=== PATIENT | male | born 1960 | race Caucasian/White ===

== ENCOUNTER 2018-12-05 01:13 | Emergency (ER) | payer MEDICARE, MEDICAID ==
[~2018-12-05] VITALS: Ht 167.6 cm; Wt 105.7 kg
[2018-12-05] MEDS ORDERED: LORazepam 2 mg/ml vial IV ONE (02:55)
[2018-12-05] MEDS ORDERED: normal saline 1000ML IV soln IVB ONE (02:55)
[2018-12-05 03:06] LABS: BASOPHILS # (AUTO) 0.1 X10'3 (0-0.2); BASOPHILS % (AUTO) 0.6 % (0-1); EOSINOPHILS # (AUTO) 0.1 X10'3 (0-0.9); EOSINOPHILS % (AUTO) 1.3 % (0-6); HEMATOCRIT 47.6 % (42.0-52.0); HEMOGLOBIN 16.5 g/dl (14.0-17.9); LYMPHOCYTES # (AUTO) 3.2 X10'3 (1.1-4.8); LYMPHOCYTES % (AUTO) 35.2 % (21-51); MEAN CORPUSCULAR HEMOGLOBIN 29.5 PG (27.0-31.0); MEAN CORPUSCULAR HGB CONC 34.6 g/dL (33.0-36.5); MEAN CORPUSCULAR VOLUME 85.3 FL (78-98); MEAN PLATELET VOLUME 8.3 FL (7.4-10.4); MONOCYTES # (AUTO) 0.7 X10'3 (0-0.9); MONOCYTES % (AUTO) 8.1 % (2-12); NEUTROPHILS % (AUTO) 54.8 % (42-75); PLATELET COUNT 186 X10'3 (140-440); RED BLOOD COUNT 5.58 X10'6 (4.70-6.10); RED CELL DISTRIBUTION WIDTH 14.5 % (11.5-14.5); WHITE BLOOD COUNT 9.1 X10'3 (4.5-11.0)
[2018-12-05 03:18] LABS: ALANINE AMINOTRANSFERASE 39 U/L (12-78); ALBUMIN 3.8 G/DL (3.4-5.0); ALKALINE PHOSPHATASE 146 IU/L (46-116); ANION GAP 9 (8-16); ASPARTATE AMINO TRANSFERASE 23 U/L (10-37); BILIRUBIN,TOTAL 0.5 MG/DL (0.1-1.0); BLOOD UREA NITROGEN 11 MG/DL (7-18); BUN/CREATININE RATIO 8.7 (5.4-32.0); CALCIUM 9.2 MG/DL (8.5-10.1); CHLORIDE 101 MMOL/L (99-107); CREATININE 1.26 MG/DL (0.60-1.10); GLUCOSE 306 MG/DL (70-104); POTASSIUM 3.1 MMOL/L (3.5-5.1); SODIUM 138 MMOL/L (135-145); TOTAL CARBON DIOXIDE 28.3 MMOL/L (24-32); TOTAL PROTEIN 7.6 G/DL (6.4-8.2); eGFR 59 ML/MIN
[2018-12-05 03:24] LABS: CLARITY,URINE CLEAR (Clear); COLOR,URINE YELLOW (Yellow); GLUCOSE, URINE >=1000 mg/dl (Neg); KETONES,URINE NEGATIVE (Neg); LEUKOCYTE ESTERASE ,URINE NEGATIVE (Neg); NITRITES, URINE NEGATIVE (Neg); OCCULT BLOOD,URINE TRACE-LYSED (Neg); PH,URINE 5.5 (4.8-8.0); PROTEIN,URINE TRACE mg/dl (Neg); UROBILINOGEN,URINE 0.2 E.U/dL (0.2-1.0)
[2018-12-05 03:28] LABS: UA COLLECTION TYPE CLN CATCH MIDSTREAM
[2018-12-05 03:30] LABS: BACTERIA,URINE NONE SEEN /HPF (Neg); MUCUS STRANDS NONE SEEN /LPF (Neg); RBC,URINE NONE SEEN /HPF (0-2); SQUAMOUS EPITHELIAL CELL,UR NONE SEEN /LPF (FEW); WBC,URINE NONE SEEN /HPF (0-4)
[2018-12-05] MEDS ORDERED: potassium Cl 20 mEq SR tablet PO ONE (03:40)
[2018-12-05] MEDS ORDERED: potassium Cl 10 mEq/100mL bag IV ONE (03:40)
[2018-12-05 05:13] VITALS: BP 139/79
[2018-12-05] MEDS ORDERED: chlordiazePOXIDE 25mg capsule PO ONE (05:15)
[2018-12-05] MEDS ORDERED: POTA20TA19 PO (05:15)
[2018-12-05] MEDS ORDERED: insulin regular, human 10 units/0.1 ml syringe IV ONE (05:40)
== END 2018-12-05 06:23 | disposition home or self-care (01) ==
LOC: ER 01:14
DX: E11.65 Type 2 diabetes mellitus with hyperglycemia (principal); E87.6 Hypokalemia; F30.9 Manic episode, unspecified; Z88.1 Allergy status to other antibiotic agents; Z79.899 Other long term (current) drug therapy
CPT/HCPCS: 36415; 80053; 81001; 85025; 96365; 96366; 96375; 99283; J1815; J2060; J3480; J7030; 82948

== ENCOUNTER 2018-12-07 18:21 | Emergency (ER) | payer MEDICARE, MEDICAID ==
[~2018-12-07] VITALS: Ht 167.6 cm; Wt 107.2 kg
[~2018-12-07 18:21] MED LIST: POTA20TA19 PO
[2018-12-07] MEDS ORDERED: insulin regular, human 10 units/0.1 ml syringe IV ONE ×2 (19:10→20:30)
[2018-12-07] MEDS ORDERED: normal saline 1000ml 1,000 ML IV ONE ×2 (19:10)
[2018-12-07 19:24] LABS: ALANINE AMINOTRANSFERASE 35 U/L (12-78); ALBUMIN 3.5 G/DL (3.4-5.0); ALKALINE PHOSPHATASE 144 IU/L (46-116); ANION GAP 9 (8-16); ASPARTATE AMINO TRANSFERASE 19 U/L (10-37); BILIRUBIN,TOTAL 0.4 MG/DL (0.1-1.0); BLOOD UREA NITROGEN 8 MG/DL (7-18); BUN/CREATININE RATIO 6.7 (5.4-32.0); CALCIUM 9.4 MG/DL (8.5-10.1); CHLORIDE 101 MMOL/L (99-107); CREATININE 1.19 MG/DL (0.60-1.10); GLUCOSE 380 MG/DL (70-104); POTASSIUM 3.4 MMOL/L (3.5-5.1); SODIUM 139 MMOL/L (135-145); TOTAL CARBON DIOXIDE 29.3 MMOL/L (24-32); TOTAL PROTEIN 7.1 G/DL (6.4-8.2); eGFR 63 ML/MIN
[2018-12-07] MEDS ORDERED: potassium Cl 20 mEq SR tablet PO STA (19:35)
[2018-12-07 21:32] VITALS: BP 173/89
== END 2018-12-07 21:33 | disposition home or self-care (01) ==
LOC: ER 18:22
DX: E11.65 Type 2 diabetes mellitus with hyperglycemia (principal); I10 Essential (primary) hypertension; K21.9 Gastro-esophageal reflux disease without esophagitis; F31.9 Bipolar disorder, unspecified; Z21 Asymptomatic human immunodeficiency virus [HIV] infection status; Z88.1 Allergy status to other antibiotic agents; Z79.4 Long term (current) use of insulin; Z79.899 Other long term (current) drug therapy
CPT/HCPCS: 36415; 80053; 82948; 96361; 96374; 96376; 99284; J1815; J7030

== ENCOUNTER 2019-01-06 15:39 | Emergency (ER) | payer MEDICARE, MEDICAID ==
[~2019-01-06] VITALS: Ht 167.6 cm; Wt 106.4 kg
[2019-01-06 16:24] LABS: CLARITY,URINE CLEAR (Clear); COLOR,URINE STRAW (Yellow); GLUCOSE, URINE >=1000 mg/dl (Neg); KETONES,URINE TRACE mg/dl (Neg); LEUKOCYTE ESTERASE ,URINE NEGATIVE (Neg); NITRITES, URINE NEGATIVE (Neg); OCCULT BLOOD,URINE NEGATIVE (Neg); PROTEIN,URINE NEGATIVE (Neg); UROBILINOGEN,URINE 0.2 E.U/dL (0.2-1.0)
[2019-01-06 16:25] LABS: UA COLLECTION TYPE CLN CATCH MIDSTREAM
[2019-01-06 16:31] LABS: URINE AMPHETAMINE SCREEN NEGATIVE (Neg); URINE BARBITUATE SCREEN NEGATIVE (Neg); URINE BENZODIAZEPINES SCREEN NEGATIVE (Neg); URINE CANNABINOID SCREEN NEGATIVE (Neg); URINE COCAINE SCREEN NEGATIVE (Neg); URINE METHADONE SCREEN NEGATIVE (Neg); URINE OPIATE SCREEN POSITIVE (Neg); URINE PHENCYCLIDINE SCREEN NEGATIVE (Neg)
[2019-01-06 16:33] LABS: BACTERIA,URINE NONE SEEN /HPF (Neg); RBC,URINE 0-2 /HPF (0-2); SQUAMOUS EPITHELIAL CELL,UR FEW /LPF (FEW); WBC,URINE NONE SEEN /HPF (0-4)
[2019-01-06 16:39] LABS: BASOPHILS # (AUTO) 0.1 X10'3 (0-0.2); BASOPHILS % (AUTO) 0.7 % (0-1); EOSINOPHILS # (AUTO) 0.1 X10'3 (0-0.9); EOSINOPHILS % (AUTO) 1.4 % (0-6); HEMATOCRIT 46.1 % (42.0-52.0); LYMPHOCYTES # (AUTO) 3.4 X10'3 (1.1-4.8); LYMPHOCYTES % (AUTO) 40.8 % (21-51); MEAN CORPUSCULAR HEMOGLOBIN 29.2 PG (27.0-31.0); MEAN CORPUSCULAR HGB CONC 34.7 g/dL (33.0-36.5); MEAN CORPUSCULAR VOLUME 84.1 FL (78-98); MONOCYTES # (AUTO) 0.6 X10'3 (0-0.9); MONOCYTES % (AUTO) 7.4 % (2-12); NEUTROPHILS # (AUTO) 4.1 X10'3 (1.8-7.7); NEUTROPHILS % (AUTO) 49.7 % (42-75); PLATELET COUNT 187 X10'3 (140-440); RED BLOOD COUNT 5.48 X10'6 (4.70-6.10); RED CELL DISTRIBUTION WIDTH 14.2 % (11.5-14.5); WHITE BLOOD COUNT 8.2 X10'3 (4.5-11.0)
[2019-01-06] MEDS ORDERED: normal saline 1000ML IV soln IVB ONE (16:55)
[2019-01-06] MEDS ORDERED: insulin regular, human 10 units/0.1 ml syringe IV ONE (16:55)
[2019-01-06 17:05] LABS: ALANINE AMINOTRANSFERASE 41 U/L (12-78); ALBUMIN 3.8 G/DL (3.4-5.0); ALBUMIN/GLOBULIN RATIO 1.1 (1.1-1.5); ALKALINE PHOSPHATASE 135 IU/L (46-116); ANION GAP 10 (8-16); ASPARTATE AMINO TRANSFERASE 17 U/L (10-37); BILIRUBIN,TOTAL 0.3 MG/DL (0.1-1.0); BLOOD UREA NITROGEN 14 MG/DL (7-18); BUN/CREATININE RATIO 12.6 (5.4-32.0); CALCIUM 8.9 MG/DL (8.5-10.1); CHLORIDE 100 MMOL/L (99-107); CREATININE 1.11 MG/DL (0.60-1.10); GLUCOSE 367 MG/DL (70-104); POTASSIUM 3.4 MMOL/L (3.5-5.1); SODIUM 140 MMOL/L (135-145); TOTAL CARBON DIOXIDE 29.8 MMOL/L (24-32); TOTAL PROTEIN 7.2 G/DL (6.4-8.2); eGFR 68 ML/MIN
--- NOTE | 2019-01-06 17:10 | NUR ---
Patient feeling depressed for a long time. Feeling suicidal today. Feels hopeless and helpless. Patient wants to overdose on all his medications. Patients spouse at bedside. Patient frustrated with the Mental health system. Continue to monitor.
[2019-01-06 17:12] LABS: ETHANOL < 0.010 GM/DL (0.0-0.010)
--- NOTE | 2019-01-06 17:22 | NUR ---
PACKET WAS FAXED TO [facility].
[2019-01-06] MEDS ORDERED: OXYB5TAB16 PO (18:01)
[2019-01-06] MEDS ORDERED: DOLU50TA PO (18:01)
[2019-01-06] MEDS ORDERED: ASPI81TA44 PO (18:01)
[2019-01-06] MEDS ORDERED: ATOR20TA PO (18:01)
[2019-01-06] MEDS ORDERED: EMTR1TAB18 PO (18:01)
[2019-01-06] MEDS ORDERED: HYDR-3686 PO (18:01)
[2019-01-06] MEDS ORDERED: LISI1TAB29 PO (18:01)
[2019-01-06] MEDS ORDERED: ATEN100T6 PO (18:01)
[2019-01-06] MEDS ORDERED: HYDR-3973 PO (18:01)
[2019-01-06] MEDS ORDERED: DIVA-81 PO (18:01)
[2019-01-06] MEDS ORDERED: METF500T PO (18:01)
[2019-01-06] MEDS ORDERED: DARU1TAB PO (18:01)
[2019-01-06] MEDS ORDERED: MELA3CAP PO (18:01)
[2019-01-06] MEDS ORDERED: POTA10TA19 PO (18:01)
[2019-01-06] MEDS ORDERED: BUPR150T8 PO (18:01)
[2019-01-06] MEDS ORDERED: FAMO40TA58 PEG (18:01)
[2019-01-06] MEDS: DARUNAVIR PO SCH (18:55)
[2019-01-06] MEDS: EMTRICITABINE PO SCH (18:55)
[2019-01-06] MEDS: DOLUTEGRAVIR SODIUM PO SCH (18:55)
[2019-01-06] MEDS: COBICISTAT PO SCH (18:55)
[2019-01-06] MEDS: TENOFOV ALAFENAM PO SCH (18:55)
[2019-01-06] MEDS: famotidine 20mg tablet PEG SCH (19:52)
[2019-01-06] MEDS: oxybutynin 5mg tablet PO SCH (19:52)
[2019-01-06] MEDS: hydrOXYzine 25 MG tablet PO PRN (19:52)
[2019-01-06] MEDS ORDERED: LORazepam 1 MG tablet PO ONE (20:40)
[2019-01-06] MEDS ORDERED: atorvastatin 20mg tablet PO SCH (21:00)
[2019-01-06] MEDS ORDERED: Melatonin 3mg tablet PO SCH (21:00)
[2019-01-06] MEDS: HYDROcodone/acetaminophen 10/325mg tab PO PRN (21:01)
[2019-01-06] MEDS ORDERED: diphenhydrAMINE 25mg capsule PO ONE (22:55)
[2019-01-07] MEDS ORDERED: ibuprofen 200mg tablet PO ONE (02:30)
[2019-01-07] MEDS ORDERED: HYDROcodone/acetaminophen 10/325mg tab PO ONE (02:30)
--- NOTE | 2019-01-07 02:34 | NUR ---
Patient is awake, he continues complaining of bilateral leg and feet pain. He states this is chronic, he requests more norco. This database report writer spoke with ER MD. Patient will be given a Sawyer 10 now along with Motrin 600 mg. Patients next scheduled Sawyer will be DC'd.
--- NOTE | 2019-01-07 02:47 | NUR ---
Patient falls asleep immediately following norco and motrin adm.
--- NOTE | 2019-01-07 06:55 | NUR ---
pt is awake and went to bathroom at @650am and now back in his room. pt is sitting in chair in room. breathing and color WNL
[2019-01-07] MEDS ORDERED: metFORMIN 500mg tablet PO SCH (07:00)
[2019-01-07] MEDS: oxybutynin 5mg tablet PO SCH (07:26)
[2019-01-07] MEDS: hydrOXYzine 25 MG tablet PO PRN (07:29)
[2019-01-07] MEDS: famotidine 20mg tablet PEG SCH (07:30)
[2019-01-07] MEDS ORDERED: aspirin 81mg tablet.DR PO SCH (08:00)
[2019-01-07] MEDS ORDERED: divalproex sod 250mg ER (24-hour) tablet PO SCH (08:00)
[2019-01-07] MEDS: DARUNAVIR PO SCH (08:00)
[2019-01-07] MEDS ORDERED: HYDROchlorothiazide 25mg tablet PO SCH (08:00)
[2019-01-07] MEDS: EMTRICITABINE PO SCH (08:00)
[2019-01-07] MEDS: COBICISTAT PO SCH (08:00)
[2019-01-07] MEDS ORDERED: potassium chloride 10mEq ER tablet PO SCH (08:00)
[2019-01-07] MEDS: TENOFOV ALAFENAM PO SCH (08:00)
[2019-01-07] MEDS ORDERED: lisinopril 20mg tablet PO SCH (08:00)
[2019-01-07] MEDS ORDERED: buPROPion SR 150mg tablet PO SCH (08:00)
[2019-01-07] MEDS ORDERED: atenolol 50mg tablet PO SCH (08:00)
[2019-01-07] MEDS: DOLUTEGRAVIR SODIUM PO SCH (08:00)
[2019-01-07] MEDS ORDERED: insulin Lispro (HumaLOG) vial - multi-dose SQ SCH ×2 (08:00→21:00)
[2019-01-07] MEDS ORDERED: BUPR300T7 PO (08:32)
[2019-01-07] MEDS: buPROPion SR 150mg tablet PO SCH ×2 (08:45→08:59)
[2019-01-07] MEDS: HYDROcodone/acetaminophen 10/325mg tab PO PRN (08:45)
--- NOTE | 2019-01-07 09:17 | NUR ---
PT ATE ALL BREAKFAST AND NOW LAYING IN BED BEING GOOD
--- NOTE | 2019-01-07 10:30 | NUR ---
PTS HAS BEEN AT BEDSIDE. PT IS BEING OK
--- NOTE | 2019-01-07 10:45 | NUR ---
PT WENT TO USE BATHROOM AND JUST SITTING IN THE CHAIR.
--- NOTE | 2019-01-07 11:15 | NUR ---
PT IS BEING GOOD AND PTS IS AT BEDSIDE
--- NOTE | 2019-01-07 11:45 | NUR ---
PT USED THE BATHROOM AND IS STILL WITH PT
--- NOTE | 2019-01-07 12:25 | NUR ---
PT IS BEING GOOD AND RELAXED AT THIS TIME. IS STILL AT BEDSIDE
--- NOTE | 2019-01-07 13:09 | NUR ---
PT JUST SITTING IN CHAIR TALKING TO
--- NOTE | 2019-01-07 13:15 | NUR ---
PT EATING LUNCH AND STILL AT BEDSIDE
[2019-01-07] MEDS ORDERED: DOLUTEGRAVIR SODIUM PO ONE (13:30)
[2019-01-07] MEDS ORDERED: EMTRICITABINE PO ONE (13:30)
[2019-01-07] MEDS ORDERED: TENOFOV ALAFENAM PO ONE (13:30)
[2019-01-07] MEDS ORDERED: COBICISTAT PO ONE (13:30)
[2019-01-07] MEDS ORDERED: DARUNAVIR PO ONE (13:30)
--- NOTE | 2019-01-07 13:38 | NUR ---
PT JUST FINISHED LUNCH AND LEFT TO GO TO WORK.
--- NOTE | 2019-01-07 13:42 | NUR ---
PT IS SITTING IN CHAIR JUST RELAXING BEING GOOD DRINKING WATER. PT HAS BEEN ACCEPTED UP TO [facility] WE ARE WATING ON A ROOM FOR PT.
--- NOTE | 2019-01-07 15:30 | NUR ---
Discharge Note Patient discharged from the ER, Bed 26 and admitted to [place] for [facility] ([facility]), Bed 326 B. Patient was transferred via wheelchair. He had no personal belongings as they were taken home by his . Patient continues to state he is suicidal and overwhelmed with his life situation and feels the life of his would be easier if "I wasn't around."
[2019-01-07 17:16] VITALS: BP 150/74
== END 2019-01-07 15:30 ==
LOC: ER 15:39
DX: F32.9 Major depressive disorder, single episode, unspecified (principal); E11.65 Type 2 diabetes mellitus with hyperglycemia; I10 Essential (primary) hypertension; K21.9 Gastro-esophageal reflux disease without esophagitis; Z21 Asymptomatic human immunodeficiency virus [HIV] infection status; Z88.1 Allergy status to other antibiotic agents; Z79.82 Long term (current) use of aspirin; Z79.84 Long term (current) use of oral hypoglycemic drugs; Z79.899 Other long term (current) drug therapy
CPT/HCPCS: 36415; 80053; 80305; 80320; 81001; 82948; 84443; 85025; 96361; 96372; 96374; 99285; J1815; J7030; Q0163; Z7610

== ENCOUNTER 2019-01-07 10:57 | Inpatient (IN) | payer MEDICARE, MEDICAID ==
[~2019-01-07] VITALS: Ht 167.6 cm; Wt 109.1 kg
[~2019-01-07 10:57] MED LIST changes: +ASPI81TA44 PO; +ATEN100T6 PO; +ATOR20TA PO; +BUPR150T8 PO; +BUPR300T7 PO; +DARU1TAB PO; +DIVA-81 PO; +DOLU50TA PO; +EMTR1TAB18 PO; +FAMO40TA58 PEG; +HYDR-3686 PO; +HYDR-3973 PO; +LISI1TAB29 PO; +MELA3CAP PO; +METF500T PO; +OXYB5TAB16 PO; +POTA10TA19 PO; -POTA20TA19 PO
[2019-01-07] MEDS ORDERED: mag hydrox/Alum hydrox/simeth 30ml oral suspension PO PRN (16:25)
[2019-01-07] MEDS ORDERED: acetaminophen 325mg tablet PO PRN ×2 (16:25)
[2019-01-07] MEDS ORDERED: magnesium hydroxide 30ml (MOM) UD suspension PO PRN (16:25)
[2019-01-07] MEDS ORDERED: loperamide 2mg capsule PO PRN (16:25)
[2019-01-07] MEDS ORDERED: LORazepam 1 MG tablet PO PRN (16:25)
[2019-01-07] MEDS ORDERED: hydrOXYzine 25 MG tablet PO PRN (16:25)
--- NOTE | 2019-01-07 18:32 | NUR ---
NURSING ADMIT NOTE Patient presented to the ER on 01/06/19 stating I want to commit suicide. Patient has multiple health and personal problems and states Im tired of everyone trying to control me. Patient was recently diagnosed with depression and bipolar. Patient is a diabetic with uncontrolled BS. He was brought onto the unit 1545. Skin Check completed by SENAIT Najera and myself. No abnormalities noted. Patients BS at 1750 is 273.
[2019-01-07] MEDS ORDERED: dextrose ORAL solution 15 GM/59 ML bottle PO PRN ×2 (18:40)
[2019-01-07] MEDS ORDERED: glucagon, human recombinant 1mg kit SUBCUT PRN (18:40)
[2019-01-07] MEDS ORDERED: metFORMIN 500mg tablet PO ONE (18:55)
[2019-01-07] MEDS: insulin Lispro (HumaLOG) vial - multi-dose SQ SCH (19:05)
[2019-01-07] MEDS: HYDROcodone/acetaminophen 10/325mg tab PO PRN (19:15)
[2019-01-07 19:47] VITALS: BP 145/75
[2019-01-07] MEDS ORDERED: MELATONIN PO SCH (21:00)
[2019-01-07] MEDS ORDERED: [UNRECOGNIZED DRUG - OTHER] PO SCH (21:00)
[2019-01-07] MEDS: insulin glargine (Lantus) pen - multi-dose SQ SCH (21:18)
[2019-01-07] MEDS: atorvastatin 20mg tablet PO SCH (21:22)
[2019-01-07] MEDS: oxybutynin 5mg tablet PO SCH (21:22)
[2019-01-07] MEDS: famotidine 20mg tablet PEG SCH (21:22)
[2019-01-07] MEDS: Melatonin 3mg tablet PO PRN (22:07)
[2019-01-07] MEDS: hydrOXYzine 25 MG tablet PO PRN (22:07)
--- NOTE | 2019-01-08 01:37 | NUR ---
Nursing Progress Note: Legal hold: Voluntary Client on voluntary DTS Report received from nurse with use of SBAR: SENAIT Patel Why are they here: Patient brought to the ER by his with a plan to commit suicide by overdosing on pain medications. Patient has multiple health and personal problems and states, "Im tired of everyone trying to control me." Patient was recently diagnosed with depression and bipolar, and moved from [place] to [facility], contributing a change in medical insurance with medication changes. Patient is a diabetic with uncontrolled BS. Assessment What has happened this shift: Pt. laying in bed at the beginning of the shift, this quality analyst/technical writer introduces self and establishes rapport. Pt. presents as slightly irritable, anxious, fatigued, and with rapid/pressured speech and racing thoughts, however he responds to redirection. Pt. reports he is feeling anxious about being in a new place, experiencing chronic pain in bilateral feet r/t neuropathy, and is concerned regarding his chronic hyperglycemia r/t diabetes melitis. PRN [place] administered with effectiveness, however pt. remains slightly upset r/t having to use the hospital's [place], states, "It will not work the same as my [place] at home! Mine are big horse pills!" This quality analyst/technical writer provided education to pt. regarding using the hospital's medications while he is here unless he brings his own in from home, and he reported understanding. Administered ordered Humalog per diabetic protocol, and pt. tolerated well. Blood sugar obtained prior to HS snack, and remained slightly elevated, ordered Lantus administered. 1:1 completed at bedside, pt. denies S/I, however reports ongoing depression and anxiety. He states that he recently moved here from [place] with his partner, and he needs to find a psychiatrist in [place]. Pt. reports chronic insomnia and anxiety at HS, PRN Melatonin and Atrax administered with effectiveness. He also c/o pain in his rt. heel, and upon observation, it was discovered that skin at area is dry and cracked. Pictures obtained and placed in chart, and lotion and clean socks applied. Will endorse to AM shift and continue to monitor. S/I, H/I: Denies A/VH: Denies Sleep: Pt. reports chronic insomnia, however Melatonin/Herbal Complex he takes at home unavailable. Obtained order from Ralph MEDRANO for 6mg of Melatonin at HS, PRN. Melatonin administered with effectiveness. ADL's: Independent Group attendance: Pt. attends HS snack Were meds taken: Yes Any med S/E: None Mental Status Exam Appearance: Neat and appropriately dressed Eye contact: Good Behavior: Cooperative, anxious, fatigued, and slightly irritable Speech: Rapid, loud, pressured, intense, hyperverbal Mood: Slightly irritable Affect: Labile Thought process: Flight of ideas and racing thoughts, however able to redirect Thought Content: Broadcasting thoughts and preoccupation with medications and somatic s/s Cognition: A&O X4 Insight: Poor Judgment: Poor Interventions PRN's used: [place], Melatonin, and Atrax Therapeutic interventions: Introduced self and established rapport, ensured contract for safety, maintained a safe and therapeutic environment, monitored behaviors and need for intervention, monitored blood sugars and followed diabetic protocol, obtained order for Melatonin 6mg at HS, obtained pictures of area of concern on rt. heel, monitored behaviors and need for intervention, and maintained Q 15 in safety checks. Restraints/seclusion/emergency medication: N/A Justification of Continued Inpatient Treatment: Pt. requires interruption of current crisis, medication adjustments, and a safe and supportive environment.
[2019-01-08] MEDS: HYDROcodone/acetaminophen 10/325mg tab PO PRN ×2 (02:03→13:20)
[2019-01-08 07:45] LABS: HEMOGLOBIN A1C 9.5 % (4.5-6.2)
[2019-01-08 08:00] VITALS: BP 160/79
[2019-01-08 08:00] LABS: CHOL/HDL RATIO 3.6 (0.00-4.99); CHOLESTEROL 130 MG/DL (0-200); HDL CHOLESTEROL 36 MG/DL (35-60); LDL CHOLESTEROL 65 MG/DL (50-100); TRIGLYCERIDES 241 MG/DL (20-135)
[2019-01-08] MEDS ORDERED: buPROPion SR 150mg tablet PO SCH (08:00)
[2019-01-08] MEDS: Emtricitabine/Tenofov Alafenam (Descovy 200-25 mg Tablet) PO SCH (08:45)
[2019-01-08] MEDS: DOLUTEGRAVIR SODIUM 50 MG PO SCH (08:45)
[2019-01-08] MEDS: Darunavir/Cobicistat (Prezcobix 800 mg-150 mg Tablet) PO SCH (08:46)
[2019-01-08] MEDS: aspirin 81mg tablet.DR PO SCH (08:46)
[2019-01-08] MEDS: famotidine 20mg tablet PEG SCH ×2 (08:47→20:52)
[2019-01-08] MEDS: atenolol 50mg tablet PO SCH (08:47)
[2019-01-08] MEDS: HYDROchlorothiazide 25mg tablet PO SCH (08:48)
[2019-01-08] MEDS: lisinopril 20mg tablet PO SCH (08:48)
[2019-01-08] MEDS: divalproex sod 250mg ER (24-hour) tablet PO SCH (08:48)
[2019-01-08] MEDS: metFORMIN 500mg tablet PO SCH ×2 (08:49→17:56)
[2019-01-08] MEDS: oxybutynin 5mg tablet PO SCH ×2 (08:49→20:51)
[2019-01-08] MEDS: potassium chloride 10mEq ER tablet PO SCH (08:49)
[2019-01-08] MEDS: insulin Lispro (HumaLOG) vial - multi-dose SQ SCH ×3 (09:23→18:10)
[2019-01-08] MEDS: buPROPion SR 150mg tablet PO SCH (13:20)
--- NOTE | 2019-01-08 17:06 | NUR ---
Nursing Progress Note: Legal hold: Voluntary Client on voluntary DTS Report received from nurse with use of SBAR: SENAIT Mondragon Why are they here: Patient brought to the ER by his with a plan to commit suicide by overdosing on pain medications. Patient has multiple health and personal problems and states, "Im tired of everyone trying to control me." Patient was recently diagnosed with depression and bipolar, and moved from [place] to [facility], contributing a change in medical insurance with medication changes. Patient is a diabetic with uncontrolled BS. Assessment What has happened this shift: The patient was asleep at change of shift. He got up to group room for coffee before breakfast and then ate with his peers. He denies suicidal ideation, hallucinations and reports feeling calmer today. Attends all groups and also rests in bed. c/o nausea after insulin injections but states this same condition happens at home with his home insulin regimen. Much discussion today between patient, his and staff regarding medications. For now patient will remain on hospital hyperglycemic protocol. Patient was encouraged to discuss his concerns regarding insulin with hospitalist during initial 24 hr consult. S/I, H/I: Denies A/VH: Denies Sleep: Naps ADL's: Independent Group attendance: Pt. yes Were meds taken: Yes Any med S/E: None Mental Status Exam Appearance: Neat and appropriately dressed Eye contact: Good Behavior: Cooperative, calm Speech: normal Mood: mild depression Affect: calm Thought process: linear Thought Content: getting "better" so he can go on a planned cruise to [place] in Jan. Cognition: A&O X4 Insight: Fair Judgment: Good Interventions PRN's used: Cedric Wall Therapeutic interventions: Introduced self and established rapport, ensured contract for safety, maintained a safe and therapeutic environment, monitored behaviors and need for intervention, monitored blood sugars and followed diabetic protocol, obtained order for Melatonin 6mg at HS, obtained pictures of area of concern on rt. heel, monitored behaviors and need for intervention, and maintained Q 15 in safety checks. Restraints/seclusion/emergency medication: N/A Justification of Continued Inpatient Treatment: Pt. requires interruption of current crisis, medication adjustments, and a safe and supportive environment.
[2019-01-08 19:00] VITALS: BP 118/66
[2019-01-08] MEDS: insulin glargine (Lantus) pen - multi-dose SQ SCH (20:51)
[2019-01-08] MEDS: Melatonin 3mg tablet PO PRN (20:52)
[2019-01-08] MEDS: atorvastatin 20mg tablet PO SCH (20:52)
[2019-01-08] MEDS: hydrOXYzine 25 MG tablet PO PRN (20:59)
[2019-01-09] MEDS: HYDROcodone/acetaminophen 10/325mg tab PO PRN ×2 (01:31→20:58)
--- NOTE | 2019-01-09 02:25 | NUR ---
Nursing Progress Note: Legal hold: Voluntary Client on voluntary DTS Report received from nurse with use of SBAR: SENAIT Patel Why are they here: Patient brought to the ER by his with a plan to commit suicide by overdosing on pain medications. Patient has multiple health and personal problems and states, "Im tired of everyone trying to control me." Patient was recently diagnosed with depression and bipolar, and moved from [place] to [facility], contributing a change in medical insurance with medication changes. Patient is a diabetic with uncontrolled BS. Assessment What has happened this shift: Pt approaches nursing station and says to no one inparticular, "If my calls I do not want to talk to him because I do not agree with what he is doing on Friday and now I am going into my room to cry!" then he promptly walks away and goes to his room. Contract Consultant follows pt and asks why he is upset. Pt responds, " My is going to the [place] on Friday and I do not agree with iot because I can't go and He is suppose to be taking care of me and instead he is going to go to the fair. We have been together 19 years and I can't believe he would go to the [place] without me. 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 He is going to go to the fair without me! I want Dr. Juarez to call him and tell him he shouldn't go." Contract Consultant explained to Pt that the could not tell his what to do, but encouraged pt to express his feelings and concerns with his . PT agrees, but continues to endorse anger and despair towards his for wanting to go to the fair. PT is given atarax and melatonin with HS medications. PT wakes up at 0130 stating he is having "diabetic pain" inhis legs and requests norco which was given to him. Pt's HS blood sugar was 207. Pt was given 14 units Lantus according to scale adjustment. S/I, H/I: Denies A/VH: Denies Sleep: see sleep assessment ADL's: Independent Group attendance: Pt. attends HS snack Were meds taken: Yes Any med S/E: None Mental Status Exam Appearance: Neat and appropriately dressed Eye contact: Good Behavior:anxious, upset Speech: Rapid, loud, pressured, intense, hyperverbal Mood: Slightly irritable Affect: Labile Thought process: perseveration Thought Content: focused on going to [place] Cognition: A&O X4 Insight: Poor Judgment: Poor Interventions PRN's used: [place], Melatonin, and Atrax Therapeutic interventions: Introduced self and established rapport, ensured contract for safety, maintained a safe and therapeutic environment, monitored behaviors and need for intervention, monitored blood sugars and followed diabetic protocol, monitored behaviors and need for intervention, and maintained Q 15 in safety checks. Restraints/seclusion/emergency medication: N/A Justification of Continued Inpatient Treatment: Pt. requires interruption of current crisis, medication adjustments, and a safe and supportive environment.
[2019-01-09 07:00] VITALS: BP 133/75
[2019-01-09] MEDS: lisinopril 20mg tablet PO SCH (07:58)
[2019-01-09] MEDS: potassium chloride 10mEq ER tablet PO SCH (07:59)
[2019-01-09] MEDS: aspirin 81mg tablet.DR PO SCH (07:59)
[2019-01-09] MEDS: atenolol 50mg tablet PO SCH (07:59)
[2019-01-09] MEDS: buPROPion SR 150mg tablet PO SCH ×2 (07:59→13:34)
[2019-01-09] MEDS: metFORMIN 500mg tablet PO SCH ×2 (07:59→17:24)
[2019-01-09] MEDS: famotidine 20mg tablet PEG SCH ×2 (07:59→20:35)
[2019-01-09] MEDS: divalproex sod 250mg ER (24-hour) tablet PO SCH (08:00)
[2019-01-09] MEDS: HYDROchlorothiazide 25mg tablet PO SCH (08:00)
[2019-01-09] MEDS: oxybutynin 5mg tablet PO SCH ×2 (08:00→20:35)
[2019-01-09] MEDS: Emtricitabine/Tenofov Alafenam (Descovy 200-25 mg Tablet) PO SCH (08:01)
[2019-01-09] MEDS: Darunavir/Cobicistat (Prezcobix 800 mg-150 mg Tablet) PO SCH (08:01)
[2019-01-09] MEDS: DOLUTEGRAVIR SODIUM 50 MG PO SCH (08:01)
[2019-01-09] MEDS: insulin Lispro (HumaLOG) vial - multi-dose SQ SCH ×3 (08:43→18:06)
[2019-01-09] MEDS: hydrOXYzine 25 MG tablet PO PRN (09:20)
--- NOTE | 2019-01-09 12:10 | NUR ---
DM consult: Pt with A1c 9.5. Per H&P pt reports taking his medications regularly. Pt would benefit from DM education prior to discharge if appropriate. Pt currently on CHO controlled diet documented with 75-100% PO intake meeting nutrient needs. [facility] 01/08. No edema or wounds. Will continue to follow. Recommendations: 1) Continue CHO controlled diet 2) DM education prior to discharge if appropriate 3) Weekly wt Addendum: 01/09/19 at [address] Amended: Links added.
[2019-01-09] MEDS ORDERED: lamoTRIgine 25mg tablet PO ONE (17:15)
--- NOTE | 2019-01-09 18:19 | NUR ---
Nursing Progress Note: Legal hold: Voluntary Client on voluntary DTS Report received from nurse with use of SBAR: Erin Carr RN Why are they here: Patient brought to the ER by his with a plan to commit suicide by overdosing on pain medications. Patient has multiple health and personal problems and states, "Im tired of everyone trying to control me." Patient was recently diagnosed with depression and bipolar, and moved from [place] to [facility], contributing a change in medical insurance with medication changes. Patient is a diabetic with uncontrolled BS. Assessment What has happened this shift: Patient up in a.m. BGM: 195, 281, 219. Patients came and visited patient today and is very concerned about patient and possible dementia., and medication stabilization. States that he calls him from parking lots and he cannot remember where he parked car etc. No S&S noted. Patient has been in stable mood today. S/I, H/I: Denies A/VH: Denies Sleep: Napped. ADL's: Independent Group attendance: Yes. Were meds taken: Yes Any med S/E: None Mental Status Exam Appearance: Neat and appropriately dressed Eye contact: Good Behavior: Anxious, cooperative. Speech: Ra;pid speech, clear. Mood: Depressed. Affect: Animated. Thought process: Linear. Thought Content: Going on cruise with family when he gets out. Cognition: A&O X4 Insight: Poor Judgment: Poor Interventions PRN's used: [place], and Atrax Therapeutic interventions: Introduced self and established rapport, ensured contract for safety, maintained a safe and therapeutic environment, monitored behaviors and need for intervention, monitored blood sugars and followed diabetic protocol, monitored behaviors and need for intervention, and maintained Q 15 in safety checks. Restraints/seclusion/emergency medication: N/A Justification of Continued Inpatient Treatment: Pt. requires interruption of current crisis, medication adjustments, and a safe and supportive environment.
[2019-01-09 20:00] VITALS: BP 115/55
[2019-01-09] MEDS: atorvastatin 20mg tablet PO SCH (20:34)
[2019-01-09] MEDS: insulin glargine (Lantus) pen - multi-dose SQ SCH (20:44)
--- NOTE | 2019-01-10 02:10 | NUR ---
Nursing Progress Note: Legal hold: Voluntary Client on voluntary DTS Report received from nurse with use of SBAR: SENAIT Espinal Why are they here: Patient brought to the ER by his with a plan to commit suicide by overdosing on pain medications. Patient has multiple health and personal problems and states, "Im tired of everyone trying to control me." Patient was recently diagnosed with depression and bipolar, and moved from [place] to [facility], contributing a change in medical insurance with medication changes. Patient is a diabetic with uncontrolled BS. Assessment What has happened this shift: Pt's and friend visits fernandez. Pt said the visit went very well. PT is in an upbeat mood and states, "I feel like my medications are finally working! He denies SI/HI/AH/VH at this time. Pt's HS blood sugar was 255. Pt was given 14 units Lantus according to scale adjustment. S/I, H/I: Denies A/VH: Denies Sleep: see sleep assessment ADL's: Independent Group attendance: Pt. attends HS snack Were meds taken: Yes Any med S/E: None Mental Status Exam Appearance: Neat and appropriately dressed Eye contact: Good Behavior:anxious, upset Speech: Rapid, loud, pressured, intense, hyperverbal Mood: Slightly irritable Affect: Labile Thought process: perseveration Thought Content: focused on going to [place] Cognition: A&O X4 Insight: Poor Judgment: Poor Interventions PRN's used: [place] Therapeutic interventions: Introduced self and established rapport, ensured contract for safety, maintained a safe and therapeutic environment, monitored behaviors and need for intervention, monitored blood sugars and followed diabetic protocol, monitored behaviors and need for intervention, and maintained Q 15 in safety checks. Restraints/seclusion/emergency medication: N/A Justification of Continued Inpatient Treatment: Pt. requires interruption of current crisis, medication adjustments, and a safe and supportive environment.
[2019-01-10] MEDS: metFORMIN 500mg tablet PO SCH ×2 (07:29→17:27)
[2019-01-10 07:45] VITALS: BP 148/74
[2019-01-10] MEDS: HYDROchlorothiazide 25mg tablet PO SCH (08:14)
[2019-01-10] MEDS: lisinopril 20mg tablet PO SCH (08:15)
[2019-01-10] MEDS: famotidine 20mg tablet PEG SCH ×2 (08:15→20:00)
[2019-01-10] MEDS: atenolol 50mg tablet PO SCH (08:16)
[2019-01-10] MEDS: aspirin 81mg tablet.DR PO SCH (08:17)
[2019-01-10] MEDS: potassium chloride 10mEq ER tablet PO SCH (08:17)
[2019-01-10] MEDS: buPROPion SR 150mg tablet PO SCH ×2 (08:17→13:53)
[2019-01-10] MEDS: lamoTRIgine 25mg tablet PO SCH (08:17)
[2019-01-10] MEDS: oxybutynin 5mg tablet PO SCH ×2 (08:18→22:22)
[2019-01-10] MEDS: Emtricitabine/Tenofov Alafenam (Descovy 200-25 mg Tablet) PO SCH (08:18)
[2019-01-10] MEDS: Darunavir/Cobicistat (Prezcobix 800 mg-150 mg Tablet) PO SCH (08:19)
[2019-01-10] MEDS: DOLUTEGRAVIR SODIUM 50 MG PO SCH (08:19)
[2019-01-10] MEDS: insulin Lispro (HumaLOG) vial - multi-dose SQ SCH ×3 (08:54→18:29)
[2019-01-10] MEDS: HYDROcodone/acetaminophen 10/325mg tab PO PRN (12:01)
--- NOTE | 2019-01-10 17:45 | NUR ---
Nursing Progress Note: Legal hold: Voluntary Client on voluntary DTS Report received from nurse with use of SBAR: Erin Maya RN Why are they here: Patient brought to the ER by his with a plan to commit suicide by overdosing on pain medications. Patient has multiple health and personal problems and states, "Im tired of everyone trying to control me." Patient was recently diagnosed with depression and bipolar, and moved from [place] to [facility], contributing a change in medical insurance with medication changes. Patient is a diabetic with uncontrolled BS. Assessment What has happened this shift: Pt. asleep at start of shift. Pt. took all medications and ate all meals in the community room. 1:1 done at bedside. Pt. denies SI/HI, A/V H. Pt. states that his mood is signficiantly improved. Pt. states he still has some stress in his life due to his housing situation, but feels like he is able to bring it up with his housemates in a productive way. Pt. seen interacting with staff and patients appropriately. Pt. attended all groups. Pt. reports he is looking forwad to discharge. CBG was AM: 248, noon: 268, 1700: 292. Pt. is now on level six of the hyperglycemic protocol. S/I, H/I: Denies A/VH: Denies Sleep: Pt. napped x1 ADL's: Independent Group attendance: Yes Were meds taken: Yes Any med S/E: None Mental Status Exam Appearance: Neat and appropriately dressed Eye contact: Good Behavior: Pt. seen watching TV, talking with other patients. Speech: WNL Mood: Euthymic Affect: Congruent with affect Thought process: perseveration Thought Content: Looking forward to dsicharge Cognition: A&O X4 Insight: fair Judgment: fair Interventions PRN's used: [place] Therapeutic interventions: Introduced self and established rapport, ensured contract for safety, maintained a safe and therapeutic environment, monitored behaviors and need for intervention, monitored blood sugars and followed diabetic protocol, monitored behaviors and need for intervention, and maintained Q 15 in safety checks. Restraints/seclusion/emergency medication: N/A Justification of Continued Inpatient Treatment: Pt. requires interruption of current crisis, medication adjustments, and a safe and supportive environment.
[2019-01-10 19:00] VITALS: BP 141/68
[2019-01-10] MEDS: insulin glargine (Lantus) pen - multi-dose SQ SCH (21:00)
[2019-01-10] MEDS: atorvastatin 20mg tablet PO SCH (22:21)
--- NOTE | 2019-01-11 02:05 | NUR ---
Nursing Progress Note: Legal hold: Voluntary Client on voluntary DTS Report received from nurse with use of SBAR: Erin Joseph RN Why are they here: Patient brought to the ER by his with a plan to commit suicide by overdosing on pain medications. Patient has multiple health and personal problems and states, "Im tired of everyone trying to control me." Patient was recently diagnosed with depression and bipolar, and moved from [place] to [facility], contributing a change in medical insurance with medication changes. Patient is a diabetic with uncontrolled BS. Assessment Patient is awake and well oriented. He isolates in his room this during the evening. Patient states "I'm doing well and feeling better. Patient states things are improving in his life. Of primary concern the patient states "I will not take my insulin when I go home." Patient denies H/I, or S/I. He denies hallucinations at this time. Patient states his depression is nearly gone. He is excited because his medical needs will all be coordinated through [facility] when he gets to go home. 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 ADL's: Independent Group attendance: Yes Were meds taken: Yes Any med S/E: None Mental Status Exam Appearance: Neat and appropriately dressed Eye contact: Good Behavior: Resting quietly in his room. Speech: WNL Mood: Euthymic Affect: Congruent with affect Thought process: perseveration Thought Content: Looking forward to discharge. Cognition: A&O X4 Insight: Good. Judgment: Fair. Interventions PRN's used: [place] Therapeutic interventions: Introduced self and established rapport, ensured contract for safety, maintained a safe and therapeutic environment, monitored behaviors and need for intervention, monitored blood sugars and followed diabetic protocol, monitored behaviors and need for intervention, and maintained Q 15 in safety checks. Restraints/seclusion/emergency medication: N/A Justification of Continued Inpatient Treatment: Pt. requires interruption of current crisis, medication adjustments, and a safe and supportive environment.
[2019-01-11 07:34] VITALS: BP 147/75
[2019-01-11] MEDS: buPROPion SR 150mg tablet PO SCH ×2 (08:04→13:14)
[2019-01-11] MEDS: aspirin 81mg tablet.DR PO SCH (08:04)
[2019-01-11] MEDS: metFORMIN 500mg tablet PO SCH ×2 (08:04→17:30)
[2019-01-11] MEDS: famotidine 20mg tablet PEG SCH ×2 (08:04→20:49)
[2019-01-11] MEDS: oxybutynin 5mg tablet PO SCH ×2 (08:04→20:49)
[2019-01-11] MEDS: lamoTRIgine 25mg tablet PO SCH (08:04)
[2019-01-11] MEDS: atenolol 50mg tablet PO SCH (08:05)
[2019-01-11] MEDS: potassium chloride 10mEq ER tablet PO SCH (08:05)
[2019-01-11] MEDS: HYDROchlorothiazide 25mg tablet PO SCH (08:05)
[2019-01-11] MEDS: lisinopril 20mg tablet PO SCH (08:05)
[2019-01-11] MEDS: HYDROcodone/acetaminophen 10/325mg tab PO PRN (08:06)
[2019-01-11] MEDS: Darunavir/Cobicistat (Prezcobix 800 mg-150 mg Tablet) PO SCH (08:07)
[2019-01-11] MEDS: DOLUTEGRAVIR SODIUM 50 MG PO SCH (08:07)
[2019-01-11] MEDS: Emtricitabine/Tenofov Alafenam (Descovy 200-25 mg Tablet) PO SCH (08:07)
[2019-01-11] MEDS: insulin Lispro (HumaLOG) vial - multi-dose SQ SCH ×3 (08:43→18:11)
--- NOTE | 2019-01-11 11:56 | NUR ---
Nursing Progress Note: Legal hold: N/A Client is voluntary Report received from nurse with use of SBAR: Erin Carr RN Why are they here: Patient brought to the ER by his with a plan to commit suicide by overdosing on pain medications. Patient has multiple health and personal problems and states, "Im tired of everyone trying to control me." Patient was recently diagnosed with depression and bipolar, and moved from [place] to [facility], contributing a change in medical insurance with medication changes. Patient is a diabetic with uncontrolled BS. Assessment What has happened this shift: Pt denied depression, anxiety, SI/HI/AH/VH. Pt indicates that he is eager to return home. Pt states that the new medications are working. Pt c/o right heel pain 12/22 due to cracked skin. PRN [place] 10/325 mg administered at 0847 with good effect. Pt continues on finger sticks and diabetic protocol. His FSBG this morning was 257, he was given 29 units Humalog according to the level 6 nutritional and correctional guidelines. Pt states the doctor told him he will be ready for discharge tomorrow. S/I, H/I: Pt denies A/VH: Pt denies Sleep: Pt slept 6.75 hours per noc shift report ADL's: Independent Group attendance: Yes Were meds taken: Yes Any med S/E: None Mental Status Exam Appearance: Neat and appropriately dressed Eye contact: Good Behavior: Pleasant, cooperative Speech: Clear, audible Mood: Good Affect: anxious Thought process: Linear Thought Content: ready to go home Cognition: A&O X4 Insight: Fair Judgment: Fair Interventions PRN's used: [place] 10/325 mg Therapeutic interventions: 1:1 assessment, establishment of rapport, active listening, therapeutic conversation, encouragement to attend groups, positive reinforcement, medication administration/monitoring/education, blood glucose control per protocol, encouraged pt to comply with CCD diet, maintained Q 15 in safety checks. Restraints/seclusion/emergency medication: N/A Justification of Continued Inpatient Treatment: Pt. requires interruption of current crisis, medication adjustments, and a safe and supportive environment, he has improved and plan is for him to discharge home tomorrow.
[2019-01-11 20:00] VITALS: BP 139/73
[2019-01-11] MEDS: atorvastatin 20mg tablet PO SCH (20:49)
[2019-01-11] MEDS: Melatonin 3mg tablet PO PRN (20:53)
[2019-01-11] MEDS: insulin glargine (Lantus) pen - multi-dose SQ SCH (21:11)
--- NOTE | 2019-01-11 21:59 | NUR ---
Nursing Progress Note: Legal hold: Voluntary Client on voluntary DTS Report received from nurse with use of SBAR: SENAIT Marmolejo Why are they here: Patient brought to the ER by his with a plan to commit suicide by overdosing on pain medications. Patient has multiple health and personal problems and states, "Im tired of everyone trying to control me." Patient was recently diagnosed with depression and bipolar, and moved from [place] to [facility], contributing a change in medical insurance with medication changes. Patient is a diabetic with uncontrolled BS. Assessment What has happened this shift: The patient was found in the group room waiting for his to visit. He agreed to 1:1 at bedside after his visit. The patient reports that he is much better. "The medication is working, I'm not suicidal anymore." He relates that he and his recently relocated here, so he had no provider coverage. "That sent me into a downward spiral." He states that he went off his meds during this time without coverage, and that was the beginning. The patient reports that he and his , who is also his caregiver have resolved their problems. He states that he is no longer suicidal. The patient spent the evening in the group room watching TV. He is happily discharging in the morning. S/I, H/I: Denies A/VH: Denies Sleep: see sleep assessment ADL's: Independent Group attendance: No night groups Were meds taken: Yes Any med S/E: None Mental Status Exam Appearance: Large short man, disheveled Eye contact: Good Behavior:Irritable Speech: Rapid, loud, pressured, intense, hyperverbal Mood: Slightly irritable Affect: Labile Thought process: perseveration Thought Content: focused on discharge tomorrow. Cognition: A&O X4 Insight: Poor Judgment: Poor Interventions PRN's used: Melatonin. Therapeutic interventions: Introduced self and established rapport, ensured contract for safety, maintained a safe and therapeutic environment, monitored behaviors and need for intervention, monitored blood sugars and followed diabetic protocol, monitored behaviors and need for intervention, and maintained Q 15 in safety checks. Restraints/seclusion/emergency medication: N/A Justification of Continued Inpatient Treatment: Pt. requires interruption of current crisis, medication adjustments, and a safe and supportive environment.
[2019-01-12] MEDS: buPROPion SR 150mg tablet PO SCH (07:43)
[2019-01-12] MEDS: aspirin 81mg tablet.DR PO SCH (07:43)
[2019-01-12] MEDS: potassium chloride 10mEq ER tablet PO SCH (07:43)
[2019-01-12] MEDS: lamoTRIgine 25mg tablet PO SCH (07:44)
[2019-01-12] MEDS: metFORMIN 500mg tablet PO SCH (07:44)
[2019-01-12] MEDS: famotidine 20mg tablet PEG SCH (07:44)
[2019-01-12] MEDS: oxybutynin 5mg tablet PO SCH (07:44)
[2019-01-12] MEDS: atenolol 50mg tablet PO SCH (07:45)
[2019-01-12] MEDS: lisinopril 20mg tablet PO SCH (07:45)
[2019-01-12] MEDS: HYDROchlorothiazide 25mg tablet PO SCH (07:45)
[2019-01-12] MEDS: Darunavir/Cobicistat (Prezcobix 800 mg-150 mg Tablet) PO SCH (07:45)
[2019-01-12] MEDS: Emtricitabine/Tenofov Alafenam (Descovy 200-25 mg Tablet) PO SCH (07:46)
[2019-01-12] MEDS: HYDROcodone/acetaminophen 10/325mg tab PO PRN (07:47)
[2019-01-12] MEDS: DOLUTEGRAVIR SODIUM 50 MG PO SCH (07:52)
[2019-01-12 08:00] VITALS: BP 141/83
[2019-01-12] MEDS: insulin Lispro (HumaLOG) vial - multi-dose SQ SCH (08:26)
[2019-01-12] MEDS ORDERED: BUPR-84 PO (08:44)
[2019-01-12] MEDS ORDERED: LAMO25TA5 PO (08:44)
--- NOTE | 2019-01-12 12:07 | NUR ---
DISCHARGE NOTE/Nursing Progress Note: Legal hold: N/A Client is voluntary Report received from nurse with use of SBAR: SENAIT Aguilar Why are they here: Patient brought to the ER by his with a plan to commit suicide by overdosing on pain medications. Patient has multiple health and personal problems and states, "Im tired of everyone trying to control me." Patient was recently diagnosed with depression and bipolar, and moved from [place] to [facility], contributing a change in medical insurance with medication changes. Patient is a diabetic with uncontrolled BS. Assessment What has happened this shift: Pt denied depression, SI/HI/AH/VH, stated he was only feeling anxious to get out of here. Pt stated that he felt, "great" and that he couldn't wait to get his life restarted. Pt expressed appreciation for care received. Pt's FSBG AC breakfast was 200. Pt was discharged home with his at 1100. Ambulated off the unit accompanied by spouse, discharge instructions including new Rx's and follow up care/appointments reviewed. Pt was provided with paper prescriptions which he will go have filled at [facility]. All belongings returned. S/I, H/I: Pt denied A/VH: Pt denied Sleep: Pt slept 7.25 hours per noc shift report ADL's: Independent Group attendance: Yes Were meds taken: Yes Any med S/E: None Mental Status Exam Appearance: Neat and appropriately dressed Eye contact: Good Behavior: Pleasant, cooperative Speech: Clear, audible Mood: Good Affect: anxious Thought process: Linear Thought Content: ready to go home Cognition: A&O X4 Insight: Fair Judgment: Fair Interventions PRN's used: [place] 10/325 mg @ 0747 Therapeutic interventions: 1:1 assessment, establishment of rapport, active listening, therapeutic conversation, encouragement to attend groups, positive reinforcement, medication administration/monitoring/education, blood glucose control per protocol, encouraged pt to comply with CCD diet, maintained Q 15 in safety checks., discharge education. Restraints/seclusion/emergency medication: N/A Justification of Continued Inpatient Treatment: Pt was discharged home this morning.
== END 2019-01-12 11:00 | disposition home or self-care (01) | DRG 885 ==
LOC: ADULT MH 10:57
PROVIDERS: ADMIT Psychiatry & Neurology Psychiatry; ATTEND Psychiatry & Neurology Psychiatry
DX: F39 Unspecified mood [affective] disorder (principal); R45.851 Suicidal ideations; F32.9 Major depressive disorder, single episode, unspecified; N40.0 Benign prostatic hyperplasia without lower urinary tract symptoms; E10.9 Type 1 diabetes mellitus without complications; E78.5 Hyperlipidemia, unspecified; F41.0 Panic disorder [episodic paroxysmal anxiety]; I10 Essential (primary) hypertension; K21.9 Gastro-esophageal reflux disease without esophagitis; E66.9 Obesity, unspecified; N32.81 Overactive bladder; Z68.38 Body mass index [BMI] 38.0-38.9, adult; Z79.4 Long term (current) use of insulin; Z79.899 Other long term (current) drug therapy; Z88.1 Allergy status to other antibiotic agents; Z80.9 Family history of malignant neoplasm, unspecified; Z81.8 Family history of other mental and behavioral disorders; Z89.421 Acquired absence of other right toe(s); Z80.1 Family history of malignant neoplasm of trachea, bronchus and lung
CPT/HCPCS: 36415; 80053; 80061; 80305; 80320; 81001; 82948; 83036; 84443; 85025; 87081; 99285; J1815; Z7610

== ENCOUNTER 2019-02-15 13:42 | Emergency (ER) | payer MEDICARE, MEDICAID ==
[~2019-02-15 13:42] MED LIST changes: +BUPR-84 PO; -BUPR150T8 PO; -BUPR300T7 PO; -DIVA-81 PO; +LAMO25TA5 PO
[2019-02-15 14:20] LABS: BASOPHILS % (AUTO) 0.3 % (0-1); EOSINOPHILS # (AUTO) 0.1 X10'3 (0-0.9); EOSINOPHILS % (AUTO) 0.7 % (0-6); HEMATOCRIT 47.8 % (42.0-52.0); HEMOGLOBIN 16.8 g/dl (14.0-17.9); LYMPHOCYTES # (AUTO) 2.5 X10'3 (1.1-4.8); LYMPHOCYTES % (AUTO) 29.2 % (21-51); MEAN CORPUSCULAR HEMOGLOBIN 29.3 PG (27.0-31.0); MEAN CORPUSCULAR HGB CONC 35.1 g/dL (33.0-36.5); MEAN CORPUSCULAR VOLUME 83.2 FL (78-98); MEAN PLATELET VOLUME 7.7 FL (7.4-10.4); MONOCYTES # (AUTO) 0.6 X10'3 (0-0.9); NEUTROPHILS # (AUTO) 5.3 X10'3 (1.8-7.7); NEUTROPHILS % (AUTO) 62.8 % (42-75); PLATELET COUNT 199 X10'3 (140-440); RED BLOOD COUNT 5.75 X10'6 (4.70-6.10); RED CELL DISTRIBUTION WIDTH 14.3 % (11.5-14.5); WHITE BLOOD COUNT 8.5 X10'3 (4.5-11.0)
[2019-02-15 14:30] LABS: URINE AMPHETAMINE SCREEN NEGATIVE (Neg); URINE BARBITUATE SCREEN NEGATIVE (Neg); URINE BENZODIAZEPINES SCREEN NEGATIVE (Neg); URINE CANNABINOID SCREEN NEGATIVE (Neg); URINE COCAINE SCREEN NEGATIVE (Neg); URINE METHADONE SCREEN NEGATIVE (Neg); URINE OPIATE SCREEN POSITIVE (Neg); URINE PHENCYCLIDINE SCREEN NEGATIVE (Neg)
--- NOTE | 2019-02-15 14:30 | NUR ---
Pt arrived on the unit ambulating self in no apparent distress. He is accompanied by security and unit tech. Pt was changed in to hospital green scrubs. All personal items inventoried and placed in storage. Pt's is at bedside. Pt reports that he is here because his living situation is "unsafe". He states "I am not sure I will make it if I have to go back there". He reports that he is actively having SI currently and that his plan is that he will overdose on his hydrocodone. He has a PMH of depression with SI. Pt denies needs at this time. Will continue to monitor.
[2019-02-15 14:36] LABS: ALANINE AMINOTRANSFERASE 61 U/L (12-78); ALBUMIN 4.2 G/DL (3.4-5.0); ALBUMIN/GLOBULIN RATIO 1.1 (1.1-1.5); ALKALINE PHOSPHATASE 115 IU/L (46-116); ANION GAP 11 (8-16); ASPARTATE AMINO TRANSFERASE 30 U/L (10-37); BILIRUBIN,TOTAL 0.6 MG/DL (0.1-1.0); BLOOD UREA NITROGEN 11 MG/DL (7-18); BUN/CREATININE RATIO 10.4 (5.4-32.0); CALCIUM 9.5 MG/DL (8.5-10.1); CHLORIDE 99 MMOL/L (99-107); CREATININE 1.06 MG/DL (0.60-1.10); GLUCOSE 339 MG/DL (70-104); POTASSIUM 3.5 MMOL/L (3.5-5.1); SODIUM 140 MMOL/L (135-145); TOTAL CARBON DIOXIDE 30.5 MMOL/L (24-32); TOTAL PROTEIN 7.9 G/DL (6.4-8.2); eGFR 72 ML/MIN
[2019-02-15 14:37] LABS: ETHANOL < 0.010 GM/DL (0.0-0.010)
[2019-02-15] MEDS ORDERED: normal saline 1000ML IV soln IVB ONE (14:50)
[2019-02-15] MEDS ORDERED: MESSAGE TO PHARMACY PO ONE (15:45)
[2019-02-15] MEDS ORDERED: dextrose 50%-water 50ml dispensing syringe IV PRN ×2 (15:45)
[2019-02-15] MEDS ORDERED: glucagon, human recombinant 1mg kit SUBCUT PRN (15:45)
[2019-02-15] MEDS ORDERED: dextrose ORAL solution 15 GM/59 ML bottle PO PRN ×2 (15:45)
[2019-02-15] MEDS ORDERED: hydrOXYzine 25 MG tablet PO PRN (16:30)
--- NOTE | 2019-02-15 16:30 | NUR ---
Pt is resting in bed peacefully at this time. He denies needs. No distress observed. Will continue to monitor.
[2019-02-15] MEDS: HYDROcodone/acetaminophen 10/325mg tab PO PRN (17:23)
[2019-02-15] MEDS: metFORMIN 500mg tablet PO SCH (17:23)
--- NOTE | 2019-02-15 17:54 | NUR ---
Pt is sitting up at side of bed. He is seen ambulating to the bathroom and states that he has to get up and move his feet because thay are "tingling and burning, almost like arthritis or something". Denies needs at this time. Will continue to monitor.
--- NOTE | 2019-02-15 17:57 | NUR ---
Message left with robinson Salomon regarding which home medications patient needs brought in.
--- NOTE | 2019-02-15 18:28 | NUR ---
Received report and assumed care of patient from SENAIT Castellanos.
[2019-02-15] MEDS: insulin Lispro (HumaLOG) vial - multi-dose SQ SCH (18:59)
--- NOTE | 2019-02-15 19:41 | NUR ---
The patient is being interviewed by SENAIT Davila from the [facility]. He is being calm and cooperative.
--- NOTE | 2019-02-15 19:53 | NUR ---
Call received from the patient's . He will bring patient's medicine in the AM. The patient is aware.
[2019-02-15] MEDS: oxybutynin 5mg tablet PO SCH (20:22)
[2019-02-15] MEDS: famotidine 20mg tablet PO SCH (20:22)
[2019-02-15] MEDS ORDERED: insulin glargine (Lantus) pen - multi-dose SQ SCH (21:00)
[2019-02-15] MEDS ORDERED: atorvastatin 20mg tablet PO SCH (21:00)
--- NOTE | 2019-02-15 21:30 | NUR ---
The patient appears to be asleep in supine position. Resp. unlabored. No s/s of distress.
--- NOTE | 2019-02-16 00:42 | NUR ---
The patient is sleeping on his right side. Resp. unlabored. No s/s of distress.
[2019-02-16] MEDS: HYDROcodone/acetaminophen 10/325mg tab PO PRN ×2 (03:10→15:39)
--- NOTE | 2019-02-16 03:13 | NUR ---
The patient is awake and used the restroom. He was provided [place] 10/325 for pain.
--- NOTE | 2019-02-16 05:55 | NUR ---
The patient is lying on his back in bed. Denies needs.
--- NOTE | 2019-02-16 06:49 | NUR ---
Spoke to Pt and he currently denies SI. He is sitting at edge of bed. No distress observed. Pt reports "I need time for me right now. I need to be away from my current living situation for at least a month". Will continue to monitor.
[2019-02-16] MEDS: buPROPion SR 150mg tablet PO SCH ×2 (07:28→13:21)
[2019-02-16] MEDS: metFORMIN 500mg tablet PO SCH (07:28)
[2019-02-16] MEDS: famotidine 20mg tablet PO SCH (07:29)
[2019-02-16] MEDS: oxybutynin 5mg tablet PO SCH (07:39)
[2019-02-16] MEDS ORDERED: HYDROchlorothiazide 25mg tablet PO SCH (08:00)
[2019-02-16] MEDS ORDERED: aspirin 81mg tablet.DR PO SCH (08:00)
[2019-02-16] MEDS ORDERED: atenolol 50mg tablet PO SCH (08:00)
[2019-02-16] MEDS: (Dolutegravir Sodium (Tivicay) 1 TAB) PO SCH (08:00)
[2019-02-16] MEDS: (Emtricitabine/Tenofov Alafenam (Descovy 200-25 mg Tablet) 1 TAB) PO SCH (08:00)
[2019-02-16] MEDS: DARUNAVIR PO SCH (08:00)
[2019-02-16] MEDS ORDERED: lisinopril 20mg tablet PO SCH (08:00)
[2019-02-16] MEDS ORDERED: lamoTRIgine 25mg tablet PO SCH (08:00)
[2019-02-16] MEDS: COBICISTAT PO SCH (08:00)
[2019-02-16] MEDS ORDERED: potassium chloride 10mEq ER tablet PO SCH (08:00)
[2019-02-16] MEDS: insulin Lispro (HumaLOG) vial - multi-dose SQ SCH ×2 (08:41→13:23)
--- NOTE | 2019-02-16 08:50 | NUR ---
Pt is sitting at the edge of his bed. No distress observed. Pt ate all of his breakfast. Morning BG was 228 and Pt received 10 units of humalog. He requests coffee and this is accomodated. Carlos Manuel;justin Addendum: 02/16/19 at 0911 by HERNANDEZ Will continue to monitor
--- NOTE | 2019-02-16 10:31 | NUR ---
Pt is resting in bed in supine positon. No distress observed. Will continue to monitor.
--- NOTE | 2019-02-16 11:32 | NUR ---
Spoke to Amos, Pt's spouse on the phone and he states that he is "on my way. I will be there in 20 minutes". Pt notified of this
--- NOTE | 2019-02-16 12:02 | NUR ---
Patient is sitting at side of bed visiting with . Pt states that he is anxious and PRN Atarax was administered. Will continue to monitor.
--- NOTE | 2019-02-16 13:54 | NUR ---
Pt is resting supine in bed at this time. No distress observed.
--- NOTE | 2019-02-16 16:19 | NUR ---
Pt has been accepted on the H floor at [facility]. patricia March is at bedside. Pt is signing consents. All personal items transferred with pt in the posession of Joaquim gottlieb. Pt is ambulating self in no apparent distress. Discharge summary signed by patient. Questions were answered and Pt verbalized understanding. Pt denies current SI/ HI, A/VH.
[2019-02-16 16:28] VITALS: BP 162/87
[2019-02-16] MEDS ORDERED: [UNRECOGNIZED DRUG - OTHER] (17:37)
[2019-02-16] MEDS ORDERED: lamotrigine PO (17:37)
[2019-02-16] MEDS ORDERED: lantus SQ (17:37)
[2019-02-16] MEDS ORDERED: DULA1.5P SQ (18:17)
== END 2019-02-16 16:41 ==
LOC: ER 13:42
DX: F32.9 Major depressive disorder, single episode, unspecified (principal); E11.9 Type 2 diabetes mellitus without complications; I10 Essential (primary) hypertension; K21.9 Gastro-esophageal reflux disease without esophagitis; Z88.1 Allergy status to other antibiotic agents; Z79.82 Long term (current) use of aspirin; Z79.84 Long term (current) use of oral hypoglycemic drugs; Z79.899 Other long term (current) drug therapy
CPT/HCPCS: 36415; 80053; 80305; 80320; 82948; 85025; 96372; 99285; J1815; Z7610

== ENCOUNTER 2019-02-16 14:53 | Inpatient (IN) | payer MEDICARE, MEDICAID ==
[~2019-02-16] VITALS: Ht 167.6 cm; Wt 100.5 kg
[2019-02-16 16:50] VITALS: BP 154/76
[2019-02-16] MEDS ORDERED: lamotrigine PO (17:37)
[2019-02-16] MEDS ORDERED: [UNRECOGNIZED DRUG - OTHER] (17:37)
[2019-02-16] MEDS ORDERED: lantus SQ (17:37)
[2019-02-16] MEDS ORDERED: acetaminophen 325mg tablet PO PRN ×2 (17:40)
[2019-02-16] MEDS ORDERED: loperamide 2mg capsule PO PRN (17:40)
[2019-02-16] MEDS ORDERED: magnesium hydroxide 30ml (MOM) UD suspension PO PRN (17:40)
[2019-02-16] MEDS ORDERED: mag hydrox/Alum hydrox/simeth 30ml oral suspension PO PRN (17:40)
[2019-02-16] MEDS ORDERED: NICOTINE POLACRILEX 2 MG LOZENGE BC PRN (17:40)
[2019-02-16] MEDS ORDERED: LORazepam 1 MG tablet PO PRN (17:40)
--- NOTE | 2019-02-16 17:45 | NUR ---
Admission note: Pt admitted to [facility] for 5150 for DTS. Pt has been treated for depression and is feeling depressed. He states he cannot go on and he will take all of his medication if he has to return home. He has no where else to go. He will not contract for safety and has limited support network. Pt has history of HIV, depression, DM.
[2019-02-16] MEDS ORDERED: DULA1.5P SQ (18:17)
[2019-02-16 20:00] VITALS: BP 152/80
[2019-02-16] MEDS ORDERED: insulin glargine (Lantus) pen - multi-dose SQ SCH (21:00)
[2019-02-16] MEDS: famotidine 20mg tablet PO SCH (21:03)
[2019-02-16] MEDS: oxybutynin 5mg tablet PO SCH (21:04)
[2019-02-16] MEDS: atorvastatin 20mg tablet PO SCH (21:04)
[2019-02-16] MEDS: Melatonin 3mg tablet PO SCH (21:04)
[2019-02-16] MEDS: HYDROcodone/acetaminophen 10/325mg tab PO PRN (21:28)
[2019-02-16] MEDS: hydrOXYzine 25 MG tablet PO PRN (21:28)
--- NOTE | 2019-02-16 23:40 | NUR ---
Nursing Progress Note Legal hold 5150 Client on involuntary status for GD Report received from nurse Mia SAPP Why are they here: Pt admitted to [facility] for [facility] health for 5150 for DTS. Pt has been treated for depression and is feeling depressed. He states he cannot go on and he will take all of his medication if he has to return home. He has no where else to go. He will not contract for safety and has limited support network. Pt has history of HIV, depression, DM. Assessment What has happened this shift: Pt was walking in the hallway at change of shift. pt is upset c/o not getting his dinner meal when others received theirs. S/I, H/I: pt states he had s/i w/plan to OD on "half a bottle of my norco" Pt denies s/i now stating he is feeling better knowing people are leaving his house. A/VH: denies Sleep: pt reports he didnt sleep last night and is still tired ADL's: independent Group attendance: no evening groups Were meds taken: yes Any med S/E none observed or reported Mental Status Exam Appearance: adequately groomed and wearing green scrubs and non skid socks. Eye contact: good Behavior: irritable, cooperative Speech: normal rate and rhythm Mood: anxious, depressed Affect: congruent with mood Thought process: linear Thought Content: concerned about meds, housing situation Cognition:a/ox3 Insight:fair Judgment: fair Interventions PRN's used: norco, atarax Therapeutic interventions: 1:1 therapeutic assessment, maintained safe therapeutic milieu, provided active listening with positive reinforcement, provided medication administration/education/monitoring as needed; Q15 safety checks. Restraints/seclusion/emergency medication: N/A Justification of Continued Inpatient Treatment: Continued therapeutic support and medication management needed to provide stabilization, prevent decompensation, improve coping mechanisms decreasing risk to patient and re-admittance.
[2019-02-17] MEDS: HYDROcodone/acetaminophen 10/325mg tab PO PRN ×2 (04:29→14:59)
[2019-02-17 07:38] VITALS: BP 121/76
[2019-02-17 07:48] LABS: CHOL/HDL RATIO 2.8 (0.00-4.99); CHOLESTEROL 94 MG/DL (0-200); HDL CHOLESTEROL 34 MG/DL (35-60); LDL CHOLESTEROL 44 MG/DL (50-100); TRIGLYCERIDES 152 MG/DL (20-135)
[2019-02-17] MEDS: lamoTRIgine 25mg tablet PO SCH (08:00)
[2019-02-17] MEDS: atenolol 50mg tablet PO SCH (08:39)
[2019-02-17] MEDS: oxybutynin 5mg tablet PO SCH ×2 (08:40→20:38)
[2019-02-17] MEDS: aspirin 81mg tablet.DR PO SCH (08:41)
[2019-02-17] MEDS: HYDROchlorothiazide 25mg tablet PO SCH (08:41)
[2019-02-17] MEDS: lisinopril 20mg tablet PO SCH (08:42)
[2019-02-17] MEDS: potassium chloride 10mEq ER tablet PO SCH (08:43)
[2019-02-17] MEDS: famotidine 20mg tablet PO SCH ×2 (08:43→20:39)
[2019-02-17] MEDS ORDERED: FLU VACC QS 2019-20 (6 MOS UP) 60 MCG/0.5 ML VIAL IMVAC ONE (10:00)
[2019-02-17] MEDS ORDERED: pneumococcal 23-VAL P-sac vacc 25 mcg/0.5ml vial IMVAC ONE (10:00)
[2019-02-17] MEDS: Dulaglutide (Trulicity) 0.5 ML SQ SCH (10:44)
[2019-02-17] MEDS: EMTRICITABINE PO SCH (10:45)
[2019-02-17] MEDS: TENOFOV ALAFENAM PO SCH (10:45)
[2019-02-17] MEDS: Darunavir/Cobicistat (Prezcobix 800 mg-150 mg Tablet PO SCH (10:45)
[2019-02-17] MEDS: DOLUTEGRAVIR SODIUM PO SCH (10:46)
[2019-02-17] MEDS: metFORMIN 500mg tablet PO SCH ×2 (10:46→18:13)
[2019-02-17] MEDS ORDERED: dextrose ORAL solution 15 GM/59 ML bottle PO PRN ×2 (10:50)
[2019-02-17] MEDS ORDERED: glucagon, human recombinant 1mg kit SUBCUT PRN (10:50)
[2019-02-17] MEDS ORDERED: dextrose 50%-water 50ml dispensing syringe IV PRN ×2 (10:50)
[2019-02-17] MEDS ORDERED: MESSAGE TO PHARMACY PO ONE (10:50)
[2019-02-17] MEDS: insulin Lispro (HumaLOG) vial - multi-dose SQ SCH ×2 (13:24→19:21)
--- NOTE | 2019-02-17 13:57 | NUR ---
Cardiac diet consult: Patient with no significant PMH, documented with hx HTN, TG slightly elevated at 152 with decreased LDL 44 and HDL 34. Pt also with hx T2DM with A1c 9.5 in December of this year. Pt admit with depression with SI, not appropriate for education at this time. Will continue to follow. Addendum: 02/17/19 at [address] Amended: Links added.
--- NOTE | 2019-02-17 18:01 | NUR ---
Nursing Progress Note Legal hold 5150 Client on involuntary status for GD Report received from [facility] RN Why are they here: Pt admitted to [place] for [facility] health for 5150 for DTS. Pt has been treated for depression and is feeling depressed. He states he cannot go on and he will take all of his medication if he has to return home. He has no where else to go. He will not contract for safety and has limited support network. Pt has history of HIV, depression, DM. Assessment What has happened this shift: Pt was walking in the hallway at change of shift. pt is upset c/o lunch being worse than the last time he was here. Patient lisa suicide ideation at this time. Patient states home life is getting better. A/VH: denies Sleep: pt reports he slept a little bit ADL's: independent Group attendance: Patient went to group Were meds taken: yes Any med S/E none observed or reported Mental Status Exam Appearance: adequately groomed and wearing cloths from home and non skid socks. Eye contact: good Behavior: irritable, cooperative Speech: normal rate and rhythm Mood: anxious Affect: congruent with mood Thought process: linear Thought Content: concerned about meds, housing situation Cognition:a/ox3 Insight:fair Judgment: fair Interventions PRN's used: norco x1 Therapeutic interventions: 1:1 therapeutic assessment, maintained safe therapeutic milieu, provided active listening with positive reinforcement, provided medication administration/education/monitoring as needed, addressed missing medication that patient was concerned about; Q15 safety checks. Restraints/seclusion/emergency medication: N/A Justification of Continued Inpatient Treatment: Continued therapeutic support and medication management needed to provide stabilization, help patient to adopt positive coping mechanisms
[2019-02-17 20:11] VITALS: BP 144/69
[2019-02-17] MEDS: Melatonin 3mg tablet PO SCH (20:38)
[2019-02-17] MEDS: atorvastatin 20mg tablet PO SCH (20:38)
[2019-02-17] MEDS: insulin glargine (Lantus) pen - multi-dose SQ SCH (20:46)
--- NOTE | 2019-02-17 21:36 | NUR ---
Nursing Progress Note Legal hold 5150 Client on involuntary status for GD Report received from Philippe SAPP Why are they here: Pt admitted to [facility] for [facility] health for 5150 for DTS. Pt has been treated for depression and is feeling depressed. He states he cannot go on and he will take all of his medication if he has to return home. He has no where else to go. He will not contract for safety and has limited support network. Pt has history of HIV, depression, DM. Assessment What has happened this shift: Pt was in the group room at change of shift. Pt c/o dinner not tasting good, "there was nothing good about it, it's terrible." Pt visited with during the evening then reported feeling tired and wanted to go to sleep early. Pt complains that his room has not been cleaned in 2 days and c/o the soap dispenser not working. Pt acknowledged that he was provided with hand soap he was just not happy with the dispenser not working. Pt denies s/i, but is feeling depressed. Pt is fatigued and irritable, stating he didnt sleep well last night because of too much noise on the unit from other patients. Pt is demanding and complains "I think other patients are abusing their time with you and complains of other patients leaving messes in the break room. Pt denies s/i. Pt reports feeling better knowing people will be leaving his house soon. A/VH: denies Sleep: pt reports he didnt sleep well last night ADL's: independent Group attendance: No evening groups Were meds taken: yes Any med S/E none observed or reported Mental Status Exam Appearance: adequately groomed and wearing cloths from home and non skid socks. Eye contact: good Behavior: irritable, cooperative Speech: normal rate and rhythm Mood: anxious, depressed Affect: congruent with mood Thought process: linear Thought Content: concerned about meds, housing situation, Cognition:a/ox3 Insight:fair Judgment: fair Interventions PRN's used: none Therapeutic interventions: 1:1 therapeutic assessment, maintained safe therapeutic milieu, provided active listening with positive reinforcement, provided medication administration/education/monitoring as needed, addressed missing medication that patient was concerned about; Q15 safety checks. Restraints/seclusion/emergency medication: N/A Justification of Continued Inpatient Treatment: Continued therapeutic support and medication management needed to provide stabilization, help patient to adopt positive coping mechanisms
[2019-02-18] MEDS: HYDROcodone/acetaminophen 10/325mg tab PO PRN ×3 (04:12→23:42)
[2019-02-18 07:35] VITALS: BP 129/58
[2019-02-18] MEDS: Dulaglutide (Trulicity) 0.5 ML SQ SCH (08:00)
[2019-02-18] MEDS: famotidine 20mg tablet PO SCH ×2 (08:35→20:29)
[2019-02-18] MEDS: buPROPion SR 150mg tablet PO SCH ×2 (08:35→13:06)
[2019-02-18] MEDS: aspirin 81mg tablet.DR PO SCH (08:35)
[2019-02-18] MEDS: oxybutynin 5mg tablet PO SCH ×2 (08:35→20:30)
[2019-02-18] MEDS: lisinopril 20mg tablet PO SCH (08:36)
[2019-02-18] MEDS: HYDROchlorothiazide 25mg tablet PO SCH (08:36)
[2019-02-18] MEDS: atenolol 50mg tablet PO SCH (08:36)
[2019-02-18] MEDS: potassium chloride 10mEq ER tablet PO SCH (08:36)
[2019-02-18] MEDS: lamoTRIgine 25mg tablet PO SCH (08:36)
[2019-02-18] MEDS: metFORMIN 500mg tablet PO SCH ×2 (08:53→17:13)
[2019-02-18] MEDS: DOLUTEGRAVIR SODIUM PO SCH (08:54)
[2019-02-18] MEDS: EMTRICITABINE PO SCH (08:54)
[2019-02-18] MEDS: Darunavir/Cobicistat (Prezcobix 800 mg-150 mg Tablet PO SCH (08:54)
[2019-02-18] MEDS: TENOFOV ALAFENAM PO SCH (08:54)
[2019-02-18] MEDS ORDERED: FLU VACC QS 2019-20 (6 MOS UP) 60 MCG/0.5 ML VIAL IMVAC ONE (09:00)
[2019-02-18] MEDS ORDERED: pneumococcal 23-VAL P-sac vacc 25 mcg/0.5ml vial IMVAC ONE (09:00)
[2019-02-18] MEDS: insulin Lispro (HumaLOG) vial - multi-dose SQ SCH ×2 (09:15→18:16)
--- NOTE | 2019-02-18 09:18 | NUR ---
Social work note, psycho/social assessment: This OPTICIAN MANAGER international first officer met with Ct with Kim KIDD shadowing/supervising. Ct was cooperative and answered all questions. Ct denied S/I. Ct stated changes in roommate situation will prevent his return to [facility] inpatient. This OPTICIAN MANAGER international first officer found Ct's speech rapid, tangential. Ct is fixated on roommate situation and one roommate. Ct was easily redirected. Ct was aware and cooperative. Ct is "very happy" with care received at [facility]. This OPTICIAN MANAGER international first officer noted 1) that Ct did not know the house number of his address, however Ct knew his partner's phone number. 2) Ct reported his is cared for by partner and roommate he has positive relationship with.
--- NOTE | 2019-02-18 09:27 | NUR ---
Called [facility] to schedule Ct's follow up appts with Dr Lazcano and Alexander. Ct is currently scheduled to see Dr Lazcano on 03/25/19 at 2:45 pm. He is scheduled to see Alexander on 02/23/19 at 10:45. BERNABE Marie
--- NOTE | 2019-02-18 14:41 | NUR ---
Nursing Progress Note MELANY Legal hold 5150 Client on involuntary status for GD Report received from SENAIT Aguilar Why are they here: Pt admitted to [place] for [facility] health for 5150 for DTS. Pt has been treated for depression and is feeling depressed. He states he cannot go on and he will take all of his medication if he has to return home. He has no where else to go. He will not contract for safety and has limited support network. Pt has history of HIV, depression, DM. Assessment What has happened this shift: Pt was in the group room at change of shift. Pt is socializing with peers. Pt c/o breakfast not being chopped up and proceeded to complain about kitchen staff "not doing their job very well." Pt denies s/i, but endorses feelings of depression. He reports that his SO visited yesterday and brought his Trulicity and administered to him during their visit. Pt advised that this is against policy rules and he was educated about medications and proper administration. Pt c/o wound on his great right toe, designer/writer placed picture in chart and charge nurse Amanda submitted wound care consult. Pt talked about the recent cruise he just went on that he does yearly with his SO. A/VH: denies Sleep: pt reports he didn't sleep well last night d/t rumination of thoughts ADL's: independent Group attendance: Yes Were meds taken: yes Any med S/E none observed or reported Mental Status Exam Appearance: adequately groomed and wearing cloths from home and non skid socks. Eye contact: direct Behavior: cooperative, complaining about misc things Speech: normal rate and rhythm Mood: depressed Affect: congruent with mood Thought process: linear Thought Content: concerned about housing situation & foot wound Cognition:a/ox4 Insight:fair Judgment: fair Interventions PRN's used: none Therapeutic interventions: 1:1 therapeutic assessment, maintained safe therapeutic milieu, provided active listening with positive reinforcement, provided medication administration/education/monitoring as needed, addressed missing medication that patient was concerned about; Q15 safety checks. Restraints/seclusion/emergency medication: N/A Justification of Continued Inpatient Treatment: Continued therapeutic support and medication management needed to provide stabilization, help patient to adopt positive coping mechanisms
[2019-02-18] MEDS: atorvastatin 20mg tablet PO SCH (20:30)
[2019-02-18] MEDS: Melatonin 3mg tablet PO SCH (20:30)
[2019-02-18] MEDS: insulin glargine (Lantus) pen - multi-dose SQ SCH (20:33)
[2019-02-18 20:41] VITALS: BP 145/86
--- NOTE | 2019-02-18 21:29 | NUR ---
Nursing Progress Note Legal hold 5150 Client on involuntary status for GD Report received from SENAIT Patel Why are they here: Pt admitted to [place] for [facility] health for 5150 for DTS. Pt has been treated for depression and is feeling depressed. He states he cannot go on and he will take all of his medication if he has to return home. He has no where else to go. He will not contract for safety and has limited support network. Pt has history of HIV, depression, DM. Assessment What has happened this shift: Pt was in group room at change of shift. Pt is in pleasant mood, denies s/i states he plans to go home tomorrow. He spent evening playing kezia with other patients, pt is happy his blood sugar is lower tonight. HS BS is 167. Pts appetite is good, reports he had trouble with sleep last night, c/o roommate leaving lights on his room and roommates lights were adjusted. A/VH: denies Sleep: pt reports he didn't sleep well ADL's: independent Group attendance: no evening groups Were meds taken: yes Any med S/E none observed or reported Mental Status Exam Appearance: adequately groomed and wearing cloths from home and non skid socks. Eye contact: direct Behavior: cooperative, complaining about misc things Speech: normal rate and rhythm Mood: euthymic, laughing, enjoying time playing card games w/other patients Affect: congruent with mood Thought process: linear Thought Content: concerned about not getting enough sleep tonight because he has a roommate now. Cognition:a/ox4 Insight:fair Judgment: fair Interventions PRN's used: none Therapeutic interventions: 1:1 therapeutic assessment, maintained safe therapeutic milieu, provided active listening with positive reinforcement, provided medication administration/education/monitoring as needed, addressed missing medication that patient was concerned about; Q15 safety checks. Restraints/seclusion/emergency medication: N/A Justification of Continued Inpatient Treatment: Continued therapeutic support and medication management needed to provide stabilization, help patient to adopt positive coping mechanisms
[2019-02-19] MEDS: hydrOXYzine 25 MG tablet PO PRN (05:36)
[2019-02-19] MEDS: oxybutynin 5mg tablet PO SCH (07:49)
[2019-02-19] MEDS: aspirin 81mg tablet.DR PO SCH (07:49)
[2019-02-19] MEDS: lamoTRIgine 25mg tablet PO SCH (07:49)
[2019-02-19] MEDS: metFORMIN 500mg tablet PO SCH (07:50)
[2019-02-19] MEDS: buPROPion SR 150mg tablet PO SCH ×2 (07:50→13:09)
[2019-02-19] MEDS: lisinopril 20mg tablet PO SCH (07:50)
[2019-02-19] MEDS: HYDROchlorothiazide 25mg tablet PO SCH (07:50)
[2019-02-19] MEDS: potassium chloride 10mEq ER tablet PO SCH (07:50)
[2019-02-19] MEDS: famotidine 20mg tablet PO SCH (07:51)
[2019-02-19] MEDS: DOLUTEGRAVIR SODIUM PO SCH (07:51)
[2019-02-19] MEDS: Darunavir/Cobicistat (Prezcobix 800 mg-150 mg Tablet PO SCH (07:51)
[2019-02-19] MEDS: EMTRICITABINE PO SCH (07:52)
[2019-02-19] MEDS: TENOFOV ALAFENAM PO SCH (07:52)
[2019-02-19] MEDS: atenolol 50mg tablet PO SCH (07:53)
[2019-02-19 08:00] VITALS: BP 123/72
[2019-02-19] MEDS ORDERED: neomy sulf/bacitrac zn/polymixin b oint 14.2 gm tube TP SCH (08:00)
[2019-02-19] MEDS: Dulaglutide (Trulicity) 0.5 ML SQ SCH (08:00)
[2019-02-19] MEDS ORDERED: Dulaglutide (Trulicity) 0.5 ML SQ SCH (10:20)
[2019-02-19] MEDS: HYDROcodone/acetaminophen 10/325mg tab PO PRN (13:45)
[2019-02-19] MEDS ORDERED: LAMO25TA5 PO (14:24)
[2019-02-19] MEDS ORDERED: BUPR-84 PO (14:24)
--- NOTE | 2019-02-19 15:20 | NUR ---
DISCHARGE NOTE: Patient off unit at 1505, all belongings inventoried and returned to patient including all personal medications. Significant other at door to transport patient home. All discharge instructions verbally explained and written provided. Verbalized understanding of discharge plan and followup appointments. Upon discharge patient did not demonstrate any signs or symptoms of ongoing depression and denies SI.
[2019-02-24] MEDS ORDERED: Dulaglutide (Trulicity) 0.5 ML SQ SCH (08:00)
[2019-02-24] MEDS ORDERED: TYPE IN GENERIC & BRAND NAME OF PATIENT MED STRENGTH & FORM SQ SCH (08:00)
== END 2019-02-19 20:06 | disposition home or self-care (01) | DRG 885 ==
LOC: ADULT MH 14:53
PROVIDERS: ADMIT Psychiatry & Neurology Psychiatry; ATTEND Psychiatry & Neurology Psychiatry
PROC: 3E0234Z Introduction of Serum, Toxoid and Vaccine into Muscle, Percutaneous Approach (ICD-10-PCS; principal; 2019-02-18)
DX: F33.41 Major depressive disorder, recurrent, in partial remission (principal); R45.851 Suicidal ideations; F41.9 Anxiety disorder, unspecified; E11.9 Type 2 diabetes mellitus without complications; E78.5 Hyperlipidemia, unspecified; I10 Essential (primary) hypertension; K21.9 Gastro-esophageal reflux disease without esophagitis; N32.81 Overactive bladder; Z79.84 Long term (current) use of oral hypoglycemic drugs; Z23 Encounter for immunization; Z89.421 Acquired absence of other right toe(s); Z88.1 Allergy status to other antibiotic agents; Z80.1 Family history of malignant neoplasm of trachea, bronchus and lung; Z79.899 Other long term (current) drug therapy
CPT/HCPCS: 36415; 80053; 80061; 80305; 80320; 82948; 85025; 87081; 90732; 99285; J1815; Q2037; Z7610

== ENCOUNTER 2019-02-26 13:02 | Emergency (ER) | payer MEDICARE, MEDICAID ==
[~2019-02-26] VITALS: Ht 167.6 cm; Wt 103.2 kg
[~2019-02-26 13:02] MED LIST changes: +DULA1.5P SQ; -HYDR-3686 PO; +[UNRECOGNIZED DRUG - OTHER]; +lamotrigine PO; +lantus SQ
[2019-02-26 13:11] VITALS: BP 146/86
--- NOTE | 2019-02-26 15:04 | NUR ---
Right foot and right toe soaked and cleaned bandaged soft shoe placed on right foot.
== END 2019-02-26 15:14 | disposition home or self-care (01) ==
LOC: ER 13:03
DX: T87.89 Other complications of amputation stump (principal); E11.621 Type 2 diabetes mellitus with foot ulcer; E11.42 Type 2 diabetes mellitus with diabetic polyneuropathy; I10 Essential (primary) hypertension; K21.9 Gastro-esophageal reflux disease without esophagitis; F31.9 Bipolar disorder, unspecified; Z88.8 Allergy status to other drugs, medicaments and biological substances; Z79.82 Long term (current) use of aspirin; Z79.899 Other long term (current) drug therapy; L97.519 Non-pressure chronic ulcer of other part of right foot with unspecified severity; Y83.9 Surgical procedure, unspecified as the cause of abnormal reaction of the patient, or of later complication, without mention of misadventure at the time of the procedure
CPT/HCPCS: 82948; 99283

== ENCOUNTER 2019-03-02 09:01 | Day surgery (SDC) | payer MEDICARE, MEDICAID ==
[2019-03-02] MEDS ORDERED: LIDOcaine 2% 5ml jelly ONE (09:32)
== END 2019-03-02 10:37 | disposition home or self-care (01) ==
LOC: WOUND CARE 09:01
PROVIDERS: ATTEND Surgery
DX: E11.621 Type 2 diabetes mellitus with foot ulcer (principal); L97.511 Non-pressure chronic ulcer of other part of right foot limited to breakdown of skin; E11.65 Type 2 diabetes mellitus with hyperglycemia; E11.42 Type 2 diabetes mellitus with diabetic polyneuropathy; I10 Essential (primary) hypertension; M19.90 Unspecified osteoarthritis, unspecified site; K21.9 Gastro-esophageal reflux disease without esophagitis; E78.5 Hyperlipidemia, unspecified; N40.0 Benign prostatic hyperplasia without lower urinary tract symptoms; E66.9 Obesity, unspecified; F41.9 Anxiety disorder, unspecified; F33.41 Major depressive disorder, recurrent, in partial remission; Z89.421 Acquired absence of other right toe(s); Z79.84 Long term (current) use of oral hypoglycemic drugs; Z68.38 Body mass index [BMI] 38.0-38.9, adult; Z79.4 Long term (current) use of insulin; Z79.82 Long term (current) use of aspirin; Z79.899 Other long term (current) drug therapy
CPT/HCPCS: 82948; 97597; A4663; A6021; A6154

== ENCOUNTER 2019-03-20 10:37 | Emergency (ER) | payer MEDICARE, MEDICAID ==
[~2019-03-20] VITALS: Ht 167.6 cm; Wt 100.0 kg
[~2019-03-20 10:37] MED LIST changes: -FAMO40TA58 PEG; +FAMO40TA58 PO
[2019-03-20] MEDS ORDERED: INSU100C10 SQ ×2 (11:31)
[2019-03-20 11:52] LABS: BASOPHILS % (AUTO) 0.3 % (0-1); EOSINOPHILS # (AUTO) 0.1 X10'3 (0-0.9); EOSINOPHILS % (AUTO) 1.6 % (0-6); HEMATOCRIT 49.4 % (42.0-52.0); HEMOGLOBIN 17.2 g/dl (14.0-17.9); LYMPHOCYTES # (AUTO) 2.4 X10'3 (1.1-4.8); LYMPHOCYTES % (AUTO) 28.7 % (21-51); MEAN CORPUSCULAR HEMOGLOBIN 29.1 PG (27.0-31.0); MEAN CORPUSCULAR HGB CONC 34.9 g/dL (33.0-36.5); MEAN CORPUSCULAR VOLUME 83.4 FL (78-98); MONOCYTES # (AUTO) 0.6 X10'3 (0-0.9); MONOCYTES % (AUTO) 6.8 % (2-12); NEUTROPHILS # (AUTO) 5.2 X10'3 (1.8-7.7); NEUTROPHILS % (AUTO) 62.6 % (42-75); PLATELET COUNT 198 X10'3 (140-440); RED BLOOD COUNT 5.92 X10'6 (4.70-6.10); RED CELL DISTRIBUTION WIDTH 13.9 % (11.5-14.5); WHITE BLOOD COUNT 8.3 X10'3 (4.5-11.0)
[2019-03-20 12:03] LABS: ALANINE AMINOTRANSFERASE 36 U/L (12-78); ALBUMIN 4.1 G/DL (3.4-5.0); ALBUMIN/GLOBULIN RATIO 1.1 (1.1-1.5); ALKALINE PHOSPHATASE 146 IU/L (46-116); ANION GAP 11 (8-16); ASPARTATE AMINO TRANSFERASE 18 U/L (10-37); BILIRUBIN,TOTAL 0.5 MG/DL (0.1-1.0); BLOOD UREA NITROGEN 21 MG/DL (7-18); BUN/CREATININE RATIO 16.5 (5.4-32.0); CALCIUM 9.7 MG/DL (8.5-10.1); CHLORIDE 97 MMOL/L (99-107); CREATININE 1.27 MG/DL (0.60-1.10); GLUCOSE 430 MG/DL (70-104); POTASSIUM 3.5 MMOL/L (3.5-5.1); SODIUM 136 MMOL/L (135-145); TOTAL CARBON DIOXIDE 27.7 MMOL/L (24-32); TOTAL PROTEIN 7.9 G/DL (6.4-8.2); eGFR 58 ML/MIN
[2019-03-20 12:14] LABS: ETHANOL < 0.010 GM/DL (0.0-0.010)
[2019-03-20] MEDS ORDERED: insulin regular, human 10 units/0.1 ml syringe SQ ONE (12:15)
[2019-03-20 12:25] LABS: CLARITY,URINE CLEAR (Clear); COLOR,URINE YELLOW (Yellow); GLUCOSE, URINE >=1000 mg/dl (Neg); KETONES,URINE NEGATIVE (Neg); LEUKOCYTE ESTERASE ,URINE NEGATIVE (Neg); NITRITES, URINE NEGATIVE (Neg); OCCULT BLOOD,URINE TRACE-LYSED (Neg); PH,URINE 5.5 (4.8-8.0); PROTEIN,URINE NEGATIVE (Neg); UROBILINOGEN,URINE 0.2 E.U/dL (0.2-1.0)
[2019-03-20 12:26] LABS: UA COLLECTION TYPE CLN CATCH MIDSTREAM
[2019-03-20 12:35] LABS: URINE AMPHETAMINE SCREEN NEGATIVE (Neg); URINE BARBITUATE SCREEN NEGATIVE (Neg); URINE BENZODIAZEPINES SCREEN NEGATIVE (Neg); URINE CANNABINOID SCREEN NEGATIVE (Neg); URINE COCAINE SCREEN NEGATIVE (Neg); URINE METHADONE SCREEN NEGATIVE (Neg); URINE OPIATE SCREEN POSITIVE (Neg); URINE PHENCYCLIDINE SCREEN NEGATIVE (Neg)
[2019-03-20 12:46] LABS: SQUAMOUS EPITHELIAL CELL,UR MODERATE /LPF (FEW)
[2019-03-20 12:47] LABS: BACTERIA,URINE FEW /HPF (Neg); RBC,URINE 0-2 /HPF (0-2); WBC,URINE 0-4 /HPF (0-4)
[2019-03-20] MEDS ORDERED: dextrose ORAL solution 15 GM/59 ML bottle PO PRN ×2 (13:20)
[2019-03-20] MEDS ORDERED: MESSAGE TO PHARMACY PO ONE (13:20)
[2019-03-20] MEDS ORDERED: glucagon, human recombinant 1mg kit SUBCUT PRN (13:20)
[2019-03-20] MEDS ORDERED: dextrose 50%-water 50ml dispensing syringe IV PRN ×2 (13:20)
[2019-03-20] MEDS ORDERED: (Dulaglutide (Trulicity) 0.5 ML) SQ SCH (14:50)
[2019-03-20] MEDS: HYDROcodone/acetaminophen 10/325mg tab PO PRN ×2 (15:45→23:46)
--- NOTE | 2019-03-20 16:00 | NUR ---
received report and assumed care of patient. Pt. presents very tearful states depression and anxiety at 10/10. States SI with plan to hang himself in closet. States he has lost everything. He is frightened about the future in regards to living arrangements. Current arrangements have not worked out and he feels his 16 year relationship is over. Encouraged patient to focus on the present and know that he is in a safe place with supportive staff. Denies any physical pain. cooperative with admission and evaluation plan.
--- NOTE | 2019-03-20 16:56 | NUR ---
PACKET SENT TO [facility] OFFICE.
[2019-03-20] MEDS: metFORMIN 500mg tablet PO SCH (17:45)
--- NOTE | 2019-03-20 19:05 | NUR ---
Assuming care of Pt from day shift rn mady payton Pt currently sitting at edge of bed and eating his carb controlled dinner. he reports that he has no teeth and will need a soft diet ordered. He is hopeful of admission to [facility]. He is dressed in green scrubs and is polite and cooperative. Will be started on Hyperglycemic protocol after dinner, beginning at level 2.
[2019-03-20] MEDS: insulin Lispro (HumaLOG) vial - multi-dose SQ SCH ×2 (19:33→21:48)
[2019-03-20] MEDS ORDERED: atorvastatin 20mg tablet PO SCH (21:00)
[2019-03-20] MEDS ORDERED: Melatonin 3mg tablet PO SCH (21:00)
[2019-03-20] MEDS ORDERED: insulin glargine (Lantus) pen - multi-dose SQ SCH ×2 (21:00)
[2019-03-20] MEDS ORDERED: insulin Lispro (HumaLOG) vial - multi-dose SQ SCH (21:00)
[2019-03-20] MEDS: oxybutynin 5mg tablet PO SCH (21:13)
[2019-03-20] MEDS: famotidine 10mg tablet PO SCH (21:14)
--- NOTE | 2019-03-20 22:32 | NUR ---
[facility] PTS , HA, ARRIVED AND DROPPED OFF HIS MEDS. HA TOLD ME THAT THE PT HAD NOT WANTED TO SEE HIM EARLIER AND THAT HE WILL NOT GO BACK TO SEE PT NOW. HE STATED THAT THE PT IS IN NEED OF MEDS TO HELP WITH MOOD STABILIZATION AND THAT HE NEEDS TO HAVE BETTER CONTROL OF HIS DIABETES AND THAT HE TRIES TO HELP THE PT BUT PT IS REGULARLY NON COMPLIANT WITH DIET. I UPDATED PT THAT MEDS WERE DROPPED OFF AND HA DID NOT WANT TO SEE HIM, HE HAD BEEN INSTRUCTED EARLIER BY PT. PT WAS UPSET BY THIS AND STATED HE HAD WANTED TO SEE HA AND THEN STATED "YOU SEE...HE DOESNT CARE ABOUT ME...HE WOULD HAVE COME TO SEE ME IF HE WAS CONCERNED". PT GIVEN PHONE TO CALL HA AND PT CALMLY TOLD HIM TO "PACK UP ALL MY THINGS AND CHARGE MY PHONE AND BRING THEM TO ME TOMORROW". PT TELLS ME THAT HA ONLY SAID OK "THEN I HUNG UP ON HIM". HA CALLED ME AFTER AND REQUESTED THAT I NOT TELL PT OF THE CALL. HE REQUESTED THAT RN CALL HIM IN THE [facility] AN UPDATED OF PLAN OF CARE. PT REPORTS THAT HIS HOME ENVIRONMENT IS "VOLITILE...MY ROOMATE TELLS ME TO SHUT UP AND GO TO YOUR ROOM...I OWN HALF OF THE CAR BUT HA HOLD THE KEYS HOSTAGE". PT REPORTS HE WANTS TO BE HERE AND GET ADMITTED FOR FURTHER CARE AND MENTAL HEALTH MANAGEMENT. HE MAINTAINS THAT HE IS GOING TO GET FROM HA, HIS LONG TIME PARTNER , WHOM HE 7 YRS AGO.
--- NOTE | 2019-03-20 23:29 | NUR ---
PT UP AND REQUESTING CRACKERS. GIVEN 2 PKTS OF SALTINES AND TOLD THIS WILL BE THE LAST SNACK OF THE NIGHT AND HE IS AGREEABLE TO THIS. HE IS ENCOURAGED TO TRY TO SLEEP. WAS GIVEN MELATONIN W [facility] MEDS. STATES IT ONLY WORKS FOR A FEW HRS THEN HE IS UP ON AND OFF THROUGHOUT THE NIGHT. PT REMAINS COOPERATIVE.
--- NOTE | 2019-03-21 00:54 | NUR ---
PT SLEEPING, LYING ON HIS RIGHT SIDE. RR 16 AND UNLABORED. SITTER AND RN WITHIN VIEW OF PT AAT.
--- NOTE | 2019-03-21 03:21 | NUR ---
pt awake again and now sitting at edge of bed. dr. salcedo updated and verbal received for benedryl 50 mg po x1 now.
[2019-03-21] MEDS ORDERED: diphenhydrAMINE 25mg capsule PO ONE (03:25)
--- NOTE | 2019-03-21 03:31 | NUR ---
Given Benedryl 50 mg po. Pt reports he has had benedryl before to help with his sleep. He reports his thoughts of his current situation are keeping him awake.
--- NOTE | 2019-03-21 06:30 | NUR ---
Assumed care of pt
--- NOTE | 2019-03-21 07:07 | NUR ---
PT SITTING UP IN BED, NO S/S OF DISTRESS.
[2019-03-21] MEDS: buPROPion SR 150mg tablet PO SCH ×2 (07:39→13:15)
[2019-03-21] MEDS: HYDROcodone/acetaminophen 10/325mg tab PO PRN (07:42)
[2019-03-21] MEDS: metFORMIN 500mg tablet PO SCH (07:43)
[2019-03-21] MEDS: oxybutynin 5mg tablet PO SCH (07:50)
[2019-03-21] MEDS: famotidine 10mg tablet PO SCH (07:52)
[2019-03-21] MEDS ORDERED: LISINOPRIL PO SCH (08:00)
[2019-03-21] MEDS ORDERED: COBICISTAT PO SCH (08:00)
[2019-03-21] MEDS ORDERED: lisinopril 20mg tablet PO SCH (08:00)
[2019-03-21] MEDS ORDERED: HYDROchlorothiazide 25mg tablet PO SCH (08:00)
[2019-03-21] MEDS ORDERED: [UNRECOGNIZED DRUG - OTHER] PO SCH (08:00)
[2019-03-21] MEDS ORDERED: insulin Lispro (HumaLOG) vial - multi-dose SQ SCH (08:00)
[2019-03-21] MEDS ORDERED: aspirin 81mg tablet.DR PO SCH (08:00)
[2019-03-21] MEDS ORDERED: HYDROCHLOROTHIAZIDE PO SCH (08:00)
[2019-03-21] MEDS ORDERED: atenolol 50mg tablet PO SCH (08:00)
[2019-03-21] MEDS ORDERED: lamoTRIgine 25mg tablet PO SCH (08:00)
[2019-03-21] MEDS ORDERED: potassium chloride 10mEq ER tablet PO SCH (08:00)
[2019-03-21] MEDS ORDERED: DARUNAVIR PO SCH (08:00)
[2019-03-21 08:04] VITALS: BP 105/78
--- NOTE | 2019-03-21 08:22 | NUR ---
Pt ate all of breakfast but does not care for eggs. Pt unable to drink regular milk but can have [place] milk.
--- NOTE | 2019-03-21 08:31 | NUR ---
PT IS UPSET BECAUSE HE RECIEVED RAISINS AND CINNAMON BUT NO OATMEAL. PT STATES HE DOES NOT CARE FOR THE EGGS HERE AND WILL EAT HIS WAFFLE AND UNSWEETENED APPLE SAUCE. RN AWARE, PT EDUCATED HE CANNOT HAVE OATMEAL. PT IS ALSO UPSET BECAUSE HE DOES NOT HAVE TEETH AND IS NOT PROVIDED A KNIFE. INFORMED PT HE CANNOT HAVE A KNIFE BUT TECH CAN ASSIST HIM.
[2019-03-21] MEDS: insulin Lispro (HumaLOG) vial - multi-dose SQ SCH ×2 (08:35→13:23)
--- NOTE | 2019-03-21 09:08 | NUR ---
PT REQUESTED PHONE TO CALL , DISCUSSED LIVING SITUATION, PLEASANT TONE, STATED "I HOPE YOU HAVE A WONDERFUL DAY".
--- NOTE | 2019-03-21 09:57 | NUR ---
PT APPEARS TO BE RESTING COMFORTABLY ON BACK, NO S/S OF DISTRESS.
--- NOTE | 2019-03-21 10:23 | NUR ---
Pt states he is not suicidal at this time, but he does want to divorce his and start a new life.
--- NOTE | 2019-03-21 11:16 | NUR ---
Coop from [facility] interviewing pt for admission and completing paperwork
--- NOTE | 2019-03-21 11:44 | NUR ---
[facility] evaluation: Spoke with pt about voluntary admission. Pt signs in voluntarilt. Faxed admit orders.
--- NOTE | 2019-03-21 12:43 | NUR ---
Pt BG [phone]
--- NOTE | 2019-03-21 13:33 | NUR ---
PTS CAME TO VISIT, AND THEN LEFT AFTER APPROX 10 MINS. PT STATED "I TOLD HIM TO LEAVE, WE'RE DONE."
--- NOTE | 2019-03-21 13:53 | NUR ---
Pt transported to [facility] via wheelchair accompanied by [facility] staff and security. All Pt belongings and paperwork sent with Pt. Pt calm and cooperative.
[2019-03-24] MEDS ORDERED: (Dulaglutide (Trulicity) 0.5 ML) SQ SCH (08:00)
== END 2019-03-21 14:13 ==
LOC: ER 10:38
DX: R45.851 Suicidal ideations (principal); I10 Essential (primary) hypertension; K21.9 Gastro-esophageal reflux disease without esophagitis; F31.9 Bipolar disorder, unspecified; E11.42 Type 2 diabetes mellitus with diabetic polyneuropathy; Z88.1 Allergy status to other antibiotic agents; Z79.82 Long term (current) use of aspirin; Z79.4 Long term (current) use of insulin; Z79.84 Long term (current) use of oral hypoglycemic drugs; Z79.899 Other long term (current) drug therapy
CPT/HCPCS: 36415; 80053; 80305; 80320; 81001; 82948; 83036; 84443; 85025; 96372; 99285; J1815; Q0163

== ENCOUNTER 2019-05-03 09:55 | Day surgery (SDC) | payer MEDICARE, MEDICAID ==
[~2019-05-03 09:55] MED LIST changes: +BUPR-72 PO; -BUPR-84 PO; +CLE150C PO; -HYDR-3973 PO; +HYDR-4353 PO; +INSU100C10 SQ; +TRAZ-251 PO; -[UNRECOGNIZED DRUG - OTHER]; -lamotrigine PO
[2019-05-03] MEDS ORDERED: LIDOcaine 2% 5ml jelly ONE (11:00)
== END 2019-05-03 12:17 | disposition home or self-care (01) ==
LOC: WOUND CARE 09:55
PROVIDERS: ATTEND Surgery
DX: E11.621 Type 2 diabetes mellitus with foot ulcer (principal); L97.512 Non-pressure chronic ulcer of other part of right foot with fat layer exposed; E11.65 Type 2 diabetes mellitus with hyperglycemia; E11.42 Type 2 diabetes mellitus with diabetic polyneuropathy; I10 Essential (primary) hypertension; M19.90 Unspecified osteoarthritis, unspecified site; K21.9 Gastro-esophageal reflux disease without esophagitis; E78.5 Hyperlipidemia, unspecified; N40.0 Benign prostatic hyperplasia without lower urinary tract symptoms; E66.9 Obesity, unspecified; F41.9 Anxiety disorder, unspecified; F33.41 Major depressive disorder, recurrent, in partial remission; Z89.421 Acquired absence of other right toe(s); Z79.84 Long term (current) use of oral hypoglycemic drugs; Z68.38 Body mass index [BMI] 38.0-38.9, adult; Z79.4 Long term (current) use of insulin; Z79.82 Long term (current) use of aspirin; Z79.899 Other long term (current) drug therapy
CPT/HCPCS: 36416; 82948; A4663; A6021; A6154

== ENCOUNTER 2019-05-06 13:15 | Emergency (ER) | payer MEDICARE, MEDICAID ==
[~2019-05-06] VITALS: Ht 167.6 cm; Wt 99.1 kg
[2019-05-06] MEDS ORDERED: normal saline 1000ML IV soln IVB ONE (14:35)
[2019-05-06 15:31] LABS: ALANINE AMINOTRANSFERASE 25 U/L (12-78); ALBUMIN 3.7 G/DL (3.4-5.0); ALBUMIN/GLOBULIN RATIO 0.8 (1.1-1.5); ALKALINE PHOSPHATASE 94 IU/L (46-116); ANION GAP 10 (8-16); BLOOD UREA NITROGEN 15 MG/DL (7-18); BUN/CREATININE RATIO 13.4 (5.4-32.0); CALCIUM 9.6 MG/DL (8.5-10.1); CHLORIDE 98 MMOL/L (99-107); CREATININE 1.12 MG/DL (0.60-1.10); GLUCOSE 315 MG/DL (70-104); MAGNESIUM 1.7 MG/DL (1.5-2.4); SODIUM 135 MMOL/L (135-145); TOTAL CARBON DIOXIDE 26.7 MMOL/L (24-32); TOTAL PROTEIN 8.2 G/DL (6.4-8.2); eGFR 67 ML/MIN
[2019-05-06 15:33] LABS: ASPARTATE AMINO TRANSFERASE 24 U/L (10-37); POTASSIUM 4.1 MMOL/L (3.5-5.1)
[2019-05-06 15:37] LABS: BASOPHILS # (AUTO) 0.1 X10'3 (0-0.2); BASOPHILS % (AUTO) 0.4 % (0-1); EOSINOPHILS # (AUTO) 0.1 X10'3 (0-0.9); EOSINOPHILS % (AUTO) 0.6 % (0-6); HEMATOCRIT 48.9 % (42.0-52.0); HEMOGLOBIN 16.7 g/dl (14.0-17.9); LYMPHOCYTES # (AUTO) 1.6 X10'3 (1.1-4.8); LYMPHOCYTES % (AUTO) 10.5 % (21-51); MEAN CORPUSCULAR HEMOGLOBIN 28.4 PG (27.0-31.0); MEAN CORPUSCULAR HGB CONC 34.3 g/dL (33.0-36.5); MEAN CORPUSCULAR VOLUME 82.8 FL (78-98); MEAN PLATELET VOLUME 7.9 FL (7.4-10.4); MONOCYTES # (AUTO) 1.5 X10'3 (0-0.9); MONOCYTES % (AUTO) 9.3 % (2-12); NEUTROPHILS # (AUTO) 12.4 X10'3 (1.8-7.7); NEUTROPHILS % (AUTO) 79.2 % (42-75); PLATELET COUNT 185 X10'3 (140-440); RED CELL DISTRIBUTION WIDTH 14.4 % (11.5-14.5); WHITE BLOOD COUNT 15.6 X10'3 (4.5-11.0)
[2019-05-06] MEDS ORDERED: sulfamethoxazole/trimethoprim DS (800/160mg) tablet PO ONE (15:55)
[2019-05-06] MEDS ORDERED: insulin regular, human 10 units/0.1 ml syringe SQ ONE (15:55)
[2019-05-06] MEDS ORDERED: SULF1TAB48 PO (16:05)
[2019-05-06 16:19] LABS: PARTIAL THROMBOPLASTIN TIME 27 SECONDS (22-32)
[2019-05-06 16:51] VITALS: BP 134/78
== END 2019-05-06 16:53 | disposition home or self-care (01) ==
LOC: ER 13:16
DX: L03.115 Cellulitis of right lower limb (principal); L03.125 Acute lymphangitis of right lower limb; I10 Essential (primary) hypertension; K21.9 Gastro-esophageal reflux disease without esophagitis; E11.65 Type 2 diabetes mellitus with hyperglycemia; F31.9 Bipolar disorder, unspecified; Z88.1 Allergy status to other antibiotic agents; Z79.82 Long term (current) use of aspirin; Z79.4 Long term (current) use of insulin; Z79.84 Long term (current) use of oral hypoglycemic drugs; Z79.899 Other long term (current) drug therapy
CPT/HCPCS: 36415; 80053; 82948; 83605; 83735; 84145; 85025; 85610; 85730; 87040; 93971; 96360; 96372; 99284; J1815; J7030

== ENCOUNTER 2019-05-06 23:33 | Emergency (ER) | payer MEDICARE, MEDICAID ==
[~2019-05-06 23:33] MED LIST changes: +SULF1TAB48 PO
== END 2019-05-07 01:06 | disposition left against medical advice (07) ==
LOC: ER 23:33
DX: M79.606 Pain in leg, unspecified (principal); Z53.21 Procedure and treatment not carried out due to patient leaving prior to being seen by health care provider

== ENCOUNTER 2020-04-03 08:01 | Outpatient (CLI) | payer MEDICARE, OTHER ==
[~2020-04-03 08:01] MED LIST changes: -CLE150C PO; +HCTZ25T PO; -SULF1TAB48 PO
[2020-04-03] MEDS ORDERED: LIDOcaine 2% 5ml jelly ONE (08:39)
== END 2020-04-03 23:59 | disposition home or self-care (01) ==
LOC: WOUND CARE 08:01
PROVIDERS: ATTEND Nurse Practitioner Family
DX: T81.89XA Other complications of procedures, not elsewhere classified, initial encounter (principal); M77.31 Calcaneal spur, right foot; M77.52 Other enthesopathy of left foot and ankle; X58.XXXA Exposure to other specified factors, initial encounter; Y93.89 Activity, other specified; Y92.89 Other specified places as the place of occurrence of the external cause; Y99.8 Other external cause status
CPT/HCPCS: 73630; 82948; 87070; 87075; 87077; 87186

== ENCOUNTER 2020-04-10 08:18 | Outpatient (CLI) | payer MEDICARE, OTHER ==
[2020-04-10] MEDS ORDERED: LIDOcaine 2% 5ml jelly ONE (08:47)
== END 2020-04-10 23:59 | disposition home or self-care (01) ==
LOC: WOUND CARE 08:18
PROVIDERS: ATTEND Nurse Practitioner Family
DX: E11.621 Type 2 diabetes mellitus with foot ulcer (principal); L97.521 Non-pressure chronic ulcer of other part of left foot limited to breakdown of skin; L97.511 Non-pressure chronic ulcer of other part of right foot limited to breakdown of skin; I10 Essential (primary) hypertension; M19.90 Unspecified osteoarthritis, unspecified site; K21.9 Gastro-esophageal reflux disease without esophagitis; F41.9 Anxiety disorder, unspecified; F33.41 Major depressive disorder, recurrent, in partial remission; Z79.4 Long term (current) use of insulin; Z79.82 Long term (current) use of aspirin; Z79.899 Other long term (current) drug therapy; Z86.14 Personal history of Methicillin resistant Staphylococcus aureus infection
CPT/HCPCS: 82948; 97597

== ENCOUNTER 2020-04-20 09:56 | Outpatient (CLI) | payer MEDICARE, OTHER ==
[2020-04-20] MEDS ORDERED: LIDOcaine 2% 5ml jelly ONE (10:14)
== END 2020-04-20 23:59 | disposition home or self-care (01) ==
LOC: WOUND CARE 09:56
PROVIDERS: ATTEND Nurse Practitioner
DX: E11.621 Type 2 diabetes mellitus with foot ulcer (principal); L97.522 Non-pressure chronic ulcer of other part of left foot with fat layer exposed; L97.512 Non-pressure chronic ulcer of other part of right foot with fat layer exposed; I10 Essential (primary) hypertension; M19.90 Unspecified osteoarthritis, unspecified site; K21.9 Gastro-esophageal reflux disease without esophagitis; F41.9 Anxiety disorder, unspecified; F33.41 Major depressive disorder, recurrent, in partial remission; Z79.4 Long term (current) use of insulin; Z79.82 Long term (current) use of aspirin; Z79.899 Other long term (current) drug therapy; Z86.14 Personal history of Methicillin resistant Staphylococcus aureus infection
CPT/HCPCS: 11042; 87070; 87075; 87076; 87077; 87186

== ENCOUNTER 2020-05-02 14:35 | Emergency (ER) | payer MEDICARE, MEDICAID ==
[~2020-05-02] VITALS: Ht 167.6 cm; Wt 94.8 kg
[2020-05-02 14:43] VITALS: BP 130/66
== END 2020-05-02 17:15 | disposition home or self-care (01) ==
LOC: ER 14:35
DX: E11.621 Type 2 diabetes mellitus with foot ulcer (principal); L97.529 Non-pressure chronic ulcer of other part of left foot with unspecified severity; E11.42 Type 2 diabetes mellitus with diabetic polyneuropathy; I10 Essential (primary) hypertension; K21.9 Gastro-esophageal reflux disease without esophagitis; F31.9 Bipolar disorder, unspecified; Z88.1 Allergy status to other antibiotic agents; Z88.8 Allergy status to other drugs, medicaments and biological substances; Z79.82 Long term (current) use of aspirin; Z79.4 Long term (current) use of insulin; Z79.899 Other long term (current) drug therapy
CPT/HCPCS: 73630; 99283

== ENCOUNTER 2022-08-04 16:49 | Emergency (ER) | payer MEDICARE, MEDICAID ==
[~2022-08-04] VITALS: Ht 167.6 cm; Wt 97.3 kg
[~2022-08-04 16:49] MED LIST changes: -DULA1.5P SQ; +FURO-150 PO; -HCTZ25T PO; -HYDR-4353 PO; +LAMO25TA41 PO; -LAMO25TA5 PO; -LISI1TAB29 PO; +LISI1TAB53 PO; -MELA3CAP PO; -METF500T PO; +POTA-192 PO; -POTA10TA19 PO; +SEMA2PEN SQ
[2022-08-04 17:26] LABS: ALANINE AMINOTRANSFERASE 28 U/L (12-78); ALBUMIN 3.6 G/DL (3.4-5.0); ALBUMIN/GLOBULIN RATIO 1.1 (1.1-1.5); ALKALINE PHOSPHATASE 112 IU/L (46-116); ANION GAP 9 (8-16); ASPARTATE AMINO TRANSFERASE 22 U/L (10-37); BILIRUBIN,TOTAL 0.5 MG/DL (0.1-1.0); BLOOD UREA NITROGEN 10 MG/DL (7-18); BUN/CREATININE RATIO 8.3 (10.0-20.0); CALCIUM 8.9 MG/DL (8.5-10.1); CHLORIDE 101 MMOL/L (99-107); GLUCOSE 365 MG/DL (70-104); POTASSIUM 3.7 MMOL/L (3.5-5.1); SODIUM 139 MMOL/L (135-145); TOTAL CARBON DIOXIDE 28.9 MMOL/L (24-32); TOTAL PROTEIN 6.8 G/DL (6.4-8.2); eGFR 61 ML/MIN
[2022-08-04 17:27] LABS: BASOPHILS # (AUTO) 0.1 X10'3 (0-0.2); EOSINOPHILS # (AUTO) 0.2 X10'3 (0-0.9); EOSINOPHILS % (AUTO) 2.2 % (0-6); HEMATOCRIT 46.9 % (42.0-52.0); LYMPHOCYTES # (AUTO) 2.5 X10'3 (1.1-4.8); LYMPHOCYTES % (AUTO) 35.6 % (21-51); MEAN CORPUSCULAR HEMOGLOBIN 28.1 PG (27.0-31.0); MEAN CORPUSCULAR HGB CONC 34.1 g/dL (33.0-36.5); MEAN CORPUSCULAR VOLUME 82.4 FL (78-98); MEAN PLATELET VOLUME 8.2 FL (7.4-10.4); MONOCYTES # (AUTO) 0.7 X10'3 (0-0.9); MONOCYTES % (AUTO) 9.5 % (2-12); NEUTROPHILS # (AUTO) 3.6 X10'3 (1.8-7.7); NEUTROPHILS % (AUTO) 51.7 % (42-75); PLATELET COUNT 169 X10'3 (140-440); RED BLOOD COUNT 5.69 X10'6 (4.70-6.10); RED CELL DISTRIBUTION WIDTH 14.1 % (11.5-14.5)
[2022-08-04 17:34] LABS: MAGNESIUM 1.7 MG/DL (1.5-2.4)
== END 2022-08-04 23:33 | disposition home or self-care (01) ==
LOC: ER 16:50
DX: R07.89 Other chest pain (principal); R06.00 Dyspnea, unspecified; I10 Essential (primary) hypertension; K21.9 Gastro-esophageal reflux disease without esophagitis; E11.42 Type 2 diabetes mellitus with diabetic polyneuropathy; F31.9 Bipolar disorder, unspecified; Z88.1 Allergy status to other antibiotic agents; Z88.8 Allergy status to other drugs, medicaments and biological substances; Z98.890 Other specified postprocedural states; Z79.82 Long term (current) use of aspirin; Z79.899 Other long term (current) drug therapy
CPT/HCPCS: 36415; 71045; 80053; 83735; 83880; 84484; 85025; 93005; 99285

== ENCOUNTER 2024-02-17 05:29 | Inpatient (IN) | payer MEDICARE, OTHER ==
[~2024-02-17] VITALS: Ht 165.1 cm; Wt 93.0 kg
[2024-02-17] VITALS (20 sets, daily range): BP systolic 83–141; BP diastolic 44–74; PULSE 93–101; RESP 11–34; TEMP 97.2–98.2; O2SAT 90–95
[~2024-02-17 05:29] MED LIST changes: -FURO-150 PO; -OXYB5TAB16 PO; +OXYB5TAB21 PO
[2024-02-17] MEDS: HYDROcodone/acetaminophen 10/325mg tab PO ONE (06:48)
[2024-02-17] MEDS ORDERED: VANCOMYCIN 1,500MG inj. 1,500 MG in normal saline 500ml IV soln 300 ML IV STA (06:49)
[2024-02-17] MEDS: LIDOcaine 1% W/epiNEPHrine 1:100,000 20ml vial SQ ONE (06:50)
[2024-02-17] MEDS ORDERED: TIRZ5PEN (07:21)
[2024-02-17] MEDS ORDERED: HYDR-3686 PO (07:24)
[2024-02-17] MEDS ORDERED: BUSP10TA11 PO (07:28)
[2024-02-17] MEDS ORDERED: GABA-530 PO (07:28)
[2024-02-17] MEDS ORDERED: TRAM50TA2 PO (07:32)
[2024-02-17] MEDS ORDERED: FURO-150 PO (07:32)
[2024-02-17] MEDS ORDERED: INSU100V41 SUBCUT (07:32)
[2024-02-17] MEDS: levoFLOXACIN-Levaquin 750MG/D5 150 ML IV SCH (07:42)
[2024-02-17] MEDS: HYDROmorphone 1 mg/ml syringe IV ONE (07:42)
[2024-02-17] MEDS: ondansetron/PF 4mg/2ml inj IV ONE (07:42)
[2024-02-17 07:53] LABS: ALANINE AMINOTRANSFERASE 19 U/L (12-78); ALBUMIN 2.6 G/DL (3.4-5.0); ALBUMIN/GLOBULIN RATIO 0.5 (1.1-1.5); ALKALINE PHOSPHATASE 171 IU/L (46-116); ANION GAP 17 (8-16); ASPARTATE AMINO TRANSFERASE 56 U/L (10-37); BILIRUBIN,TOTAL 2.4 MG/DL (0.1-1.0); BLOOD UREA NITROGEN 28 MG/DL (7-18); BUN/CREATININE RATIO 20.3 (10.0-20.0); CALCIUM 9.1 MG/DL (8.5-10.1); CHLORIDE 90 MMOL/L (99-107); CREATININE 1.38 MG/DL (0.60-1.10); GLUCOSE 259 MG/DL (70-104); POTASSIUM 3.2 MMOL/L (3.5-5.1); SODIUM 129 MMOL/L (135-145); TOTAL PROTEIN 8.1 G/DL (6.4-8.2); eCRCL 49 ML/MIN; eGFR 52 ML/MIN
[2024-02-17 08:12] LABS: BASOPHILS # (AUTO) 0.1 X10'3 (0-0.2); BASOPHILS % (AUTO) 0.3 % (0-1); EOSINOPHILS % (AUTO) 0.1 % (0-6); HEMATOCRIT 46.8 % (42.0-52.0); HEMOGLOBIN 15.5 g/dl (14.0-17.9); LYMPHOCYTES # (AUTO) 0.9 X10'3 (1.1-4.8); LYMPHOCYTES % (AUTO) 5.8 % (21-51); MEAN CORPUSCULAR HEMOGLOBIN 27.5 PG (27.0-31.0); MEAN CORPUSCULAR HGB CONC 33.2 g/dL (33.0-36.5); MEAN PLATELET VOLUME 8.8 FL (7.4-10.4); MONOCYTES # (AUTO) 1.8 X10'3 (0-0.9); MONOCYTES % (AUTO) 11.7 % (2-12); NEUTROPHILS # (AUTO) 12.8 X10'3 (1.8-7.7); NEUTROPHILS % (AUTO) 82.1 % (42-75); PLATELET COUNT 177 X10'3 (140-440); RED BLOOD COUNT 5.64 X10'6 (4.70-6.10); RED CELL DISTRIBUTION WIDTH 14.7 % (11.5-14.5); WHITE BLOOD COUNT 15.5 X10'3 (4.5-11.0)
[2024-02-17 08:18] LABS: C-REACTIVE PROTEIN 27.93 MG/DL (0.0-0.5)
[2024-02-17 08:35] LABS: BFAPPEAR TURBID; BFSOURCE OTHER
[2024-02-17 08:36] LABS: BFCOLOR BROWN
[2024-02-17 08:37] LABS: BFVOLUME 60 ML; BODY FLUID CRYSTALS QT NONE SEEN (NONE SEEN); CRYSTAL ID, BODY FLD NONE SEEN (NONE SEEN); LYMPHOCYTES,BODY FLUID 5 %; MONOCYTES,BODY FLUID 10 %; NEUTROPHILS,BODY FLUID 84 %
[2024-02-17 08:38] LABS: EOSINOPHILS,BODY FLUID 1 %
[2024-02-17] MEDS: VANCOMYCIN/H2O 1.5g/300mL PB 300 ML IV STA (09:22)
[2024-02-17] MEDS: normal saline 1000ml 1,000 ML IV ONE (09:28)
[2024-02-17] MEDS: normal saline 1000ML IV soln IV ONE (10:30)
[2024-02-17] MEDS ORDERED: acetaminophen 325mg tablet PO PRN ×2 (13:25)
[2024-02-17] MEDS: normal saline 1000ml 1,000 ML IV SCH (13:25)
[2024-02-17] MEDS ORDERED: potassium Cl 20 mEq SR tablet PO PRN (13:25)
[2024-02-17] MEDS ORDERED: magnesium sulf-water 2g/50mL 50 ML IV PRN (13:25)
[2024-02-17] MEDS ORDERED: magnesium sulf-water 4G/100mL 100 ML IV PRN (13:25)
[2024-02-17] MEDS ORDERED: magnesium Cl slow-release 64mg tablet PO PRN (13:25)
[2024-02-17] MEDS ORDERED: potassium Cl 40MEQ/1/2NS 520ml 520 ML IV PRN (13:25)
[2024-02-17] MEDS ORDERED: bacitracin 15gm ointment TP ONE (14:43)
[2024-02-17] MEDS ORDERED: ROPIVAcaine 0.5% (5mg/ml) 30ml vial ONE (14:44)
[2024-02-17] MEDS ORDERED: GABA300T28 PO (15:31)
[2024-02-17] MEDS ORDERED: propofol inj 20 ML IV ONE (17:53)
[2024-02-17] MEDS ORDERED: fentaNYL/PF 50MCG/1 ML 2ML syringe ONE (17:53)
[2024-02-17] MEDS ORDERED: midazolam 1 mg/ML 2ml injection ONE (17:53)
[2024-02-17] MEDS ORDERED: sevoflurane 250ml liquid IH ONE (17:56)
[2024-02-17] MEDS ORDERED: glucagon, human recombinant 1mg kit SUBCUT PRN (18:05)
[2024-02-17] MEDS ORDERED: dextrose 50%-water 50ml dispensing syringe IV PRN ×2 (18:05)
[2024-02-17] MEDS ORDERED: DEXTROSE 15 GM of carb/4 tabs (each vial/BOTTLE has 4 tablets) PO PRN ×2 (18:05)
[2024-02-17] MEDS ORDERED: vancomycin 1,000mg inj ONE (18:34)
[2024-02-17] MEDS ORDERED: albumin (Human) 5% 250ml 250 ML IV ONE ×2 (18:56→19:31)
[2024-02-17] MEDS: VANCOMYCIN 1GM 200ML H20 (PEG) 200 ML IV SCH (20:28)
[2024-02-17] MEDS ORDERED: morphine 4 MG/ML inj SYRINge IV PRN (20:30)
[2024-02-17] MEDS ORDERED: morphine 2 MG/ML inj. syringe IV PRN (20:30)
[2024-02-17] MEDS ORDERED: proCHLORperazine 10 MG/2 ml inj IV PRN (20:30)
[2024-02-17] MEDS ORDERED: ondansetron/PF 4mg/2ml inj IV PRN (20:30)
[2024-02-17] MEDS ORDERED: ringers solution, lacted 1,000 ML IV SCH (20:30)
[2024-02-17] MEDS ORDERED: meperidine/PF 25mg/ml syringe IV PRN ×3 (20:30)
[2024-02-17] MEDS: insulin regular, human 10 units/0.1 ml syringe IV ONE (20:37)
[2024-02-17] MEDS: atorvastatin 20mg tablet PO SCH (21:00)
[2024-02-17] MEDS: insulin regular, human U-100 10ml vial - multi-dose IV ONE (21:01)
[2024-02-17] MEDS: famotidine 20mg tablet PO SCH (22:23)
[2024-02-17] MEDS: heparin, porcine 5000 units/ml vial SQ SCH (22:25)
[2024-02-17] MEDS: INSULIN LISPRO 100 UNIT/ML INSULN.PEN MULTI-DOSE SQ SCH (22:44)
[2024-02-18] VITALS (12 sets, daily range): BP systolic 89–142; BP diastolic 60–72; PULSE 91–101; RESP 14–30; TEMP 97.8–98.5; O2SAT 19–97
[2024-02-18] MEDS: HYDROcodone/acetaminophen 10/325mg tab PO PRN (00:59)
[2024-02-18] MEDS: potassium Cl 20 mEq SR tablet PO PRN (04:21)
[2024-02-18] MEDS: ondansetron/PF 4mg/2ml inj IV PRN (08:08)
[2024-02-18] MEDS: levoFLOXACIN-Levaquin 500mg/D5 100 ML IV SCH (08:11)
[2024-02-18 08:44] LABS: BASOPHILS % (AUTO) 0.1 % (0-1); EOSINOPHILS % (AUTO) 0 % (0-6); HEMATOCRIT 37.1 % (42.0-52.0); HEMOGLOBIN 12.3 g/dl (14.0-17.9); LYMPHOCYTES # (AUTO) 1.1 X10'3 (1.1-4.8); LYMPHOCYTES % (AUTO) 8.1 % (21-51); MEAN CORPUSCULAR HEMOGLOBIN 27.9 PG (27.0-31.0); MEAN CORPUSCULAR HGB CONC 33.2 g/dL (33.0-36.5); MEAN PLATELET VOLUME 8.9 FL (7.4-10.4); MONOCYTES # (AUTO) 1.5 X10'3 (0-0.9); MONOCYTES % (AUTO) 11.4 % (2-12); NEUTROPHILS # (AUTO) 10.5 X10'3 (1.8-7.7); NEUTROPHILS % (AUTO) 80.4 % (42-75); PLATELET COUNT 155 X10'3 (140-440); RED BLOOD COUNT 4.42 X10'6 (4.70-6.10); WHITE BLOOD COUNT 13.1 X10'3 (4.5-11.0)
[2024-02-18 08:51] LABS: ALANINE AMINOTRANSFERASE 230 U/L (12-78); ALBUMIN 2.4 G/DL (3.4-5.0); ALBUMIN/GLOBULIN RATIO 0.6 (1.1-1.5); ALKALINE PHOSPHATASE 89 IU/L (46-116); ANION GAP 19 (8-16); ASPARTATE AMINO TRANSFERASE 766 U/L (10-37); BILIRUBIN,TOTAL 2.4 MG/DL (0.1-1.0); BLOOD UREA NITROGEN 45 MG/DL (7-18); BUN/CREATININE RATIO 25.4 (10.0-20.0); CALCIUM 7.8 MG/DL (8.5-10.1); CHLORIDE 94 MMOL/L (99-107); CREATININE 1.77 MG/DL (0.60-1.10); GLUCOSE 242 MG/DL (70-104); POTASSIUM 3.4 MMOL/L (3.5-5.1); SODIUM 129 MMOL/L (135-145); TOTAL CARBON DIOXIDE 16.2 MMOL/L (24-32); TOTAL PROTEIN 6.7 G/DL (6.4-8.2); eCRCL 37 ML/MIN; eGFR 39 ML/MIN
[2024-02-18] MEDS: VANCOMYCIN 1GM 200ML H20 (PEG) 200 ML IV SCH ×2 (10:22→22:27)
[2024-02-18] MEDS: LAMOTRIGINE 25 MG PO SCH (10:22)
[2024-02-18] MEDS: Emtricitabine/Tenofov Alafenam (Descovy 200-25 mg Tablet) PO SCH (10:23)
[2024-02-18] MEDS: DOLUTEGRAVIR SODIUM 50 MG PO SCH (10:23)
[2024-02-18] MEDS: Darunavir/Cobicistat (Prezcobix 800 mg-150 mg Tablet) PO SCH (10:23)
[2024-02-18 11:30] LABS: HEMOGLOBIN A1C 10.5 % (4.5-6.2)
[2024-02-18] MEDS ORDERED: BUSP10TA3 PO (12:57)
[2024-02-18] MEDS: buPROPion SR 150mg tablet PO SCH (13:44)
[2024-02-18] MEDS ORDERED: famotidine 20mg tablet PO SCH (20:00)
[2024-02-18] MEDS: busPIRone 5mg tablet PO SCH (20:22)
[2024-02-18] MEDS: traZODone 50mg tablet PO SCH (20:22)
[2024-02-18] MEDS: insulin glargine (Lantus) pen - multi-dose SQ SCH (20:25)
[2024-02-18] MEDS: pantoprazole 40 MG vial IV ONE (22:55)
[2024-02-19] VITALS (9 sets, daily range): BP systolic 105–137; BP diastolic 61–82; PULSE 86–99; RESP 18–34; TEMP 97.1–98.5; O2SAT 93–96
[2024-02-19] MEDS: calcium carbonate 500mg chew tablet PO PRN (00:49)
[2024-02-19 06:53] LABS: BASOPHILS % (AUTO) 0.2 % (0-1); EOSINOPHILS % (AUTO) 0.1 % (0-6); HEMATOCRIT 39.5 % (42.0-52.0); HEMOGLOBIN 13.1 g/dl (14.0-17.9); LYMPHOCYTES # (AUTO) 1.3 X10'3 (1.1-4.8); LYMPHOCYTES % (AUTO) 7.6 % (21-51); MEAN CORPUSCULAR HEMOGLOBIN 27.9 PG (27.0-31.0); MEAN CORPUSCULAR HGB CONC 33.2 g/dL (33.0-36.5); MEAN CORPUSCULAR VOLUME 83.9 FL (78-98); MEAN PLATELET VOLUME 8.9 FL (7.4-10.4); MONOCYTES # (AUTO) 1.5 X10'3 (0-0.9); NEUTROPHILS # (AUTO) 13.9 X10'3 (1.8-7.7); NEUTROPHILS % (AUTO) 83.1 % (42-75); PLATELET COUNT 168 X10'3 (140-440); RED BLOOD COUNT 4.71 X10'6 (4.70-6.10); RED CELL DISTRIBUTION WIDTH 15.1 % (11.5-14.5); WHITE BLOOD COUNT 16.8 X10'3 (4.5-11.0)
[2024-02-19 07:16] LABS: ALANINE AMINOTRANSFERASE 356 U/L (12-78); ALBUMIN 2.2 G/DL (3.4-5.0); ALBUMIN/GLOBULIN RATIO 0.5 (1.1-1.5); ALKALINE PHOSPHATASE 92 IU/L (46-116); ANION GAP 22 (8-16); ASPARTATE AMINO TRANSFERASE 692 U/L (10-37); BILIRUBIN,TOTAL 1.8 MG/DL (0.1-1.0); BLOOD UREA NITROGEN 37 MG/DL (7-18); BUN/CREATININE RATIO 29.8 (10.0-20.0); CALCIUM 8.3 MG/DL (8.5-10.1); CHLORIDE 96 MMOL/L (99-107); CREATININE 1.24 MG/DL (0.60-1.10); GLUCOSE 190 MG/DL (70-104); POTASSIUM 3.2 MMOL/L (3.5-5.1); SODIUM 130 MMOL/L (135-145); TOTAL PROTEIN 6.5 G/DL (6.4-8.2); eCRCL 53 ML/MIN; eGFR 59 ML/MIN
[2024-02-19 07:39] LABS: TOTAL CARBON DIOXIDE 11.9 MMOL/L (24-32)
[2024-02-19] MEDS: levoFLOXACIN-Levaquin 250mg/D5 50 ML IV SCH (07:43)
[2024-02-19] MEDS ORDERED: buPROPion SR 150mg tablet PO SCH (08:00)
[2024-02-19] MEDS: VANCOMYCIN/WATER FOR INJ (PEG) 1.25GM/250 ML IVPB IV SCH (10:37)
[2024-02-19] MEDS: famotidine 20mg tablet PO SCH (10:37)
[2024-02-19] MEDS: sodium bicarbonate (8.4%) inj. 50 MEQ in dextrose 5%-water 1,000 ML IV SCH (11:26)
[2024-02-19] MEDS: lactose-reduced food (Ensure Enlive) - 237ml bottle PO SCH (13:00)
[2024-02-19] MEDS: clindamycin-Cleocin 900mg/D5W 50 ML IV SCH (14:25)
[2024-02-19] MEDS ORDERED: TRIA15CR61 (16:44)
[2024-02-19] MEDS ORDERED: TERB30CR8 TOP (16:44)
[2024-02-19] MEDS: morphine 2 MG/ML inj. syringe IV PRN (16:56)
[2024-02-19] MEDS ORDERED: FURO20TA4 PO (17:22)
[2024-02-19] MEDS ORDERED: PRAV80TA3 PO (17:22)
[2024-02-19] MEDS: VANCOMYCIN LEVEL IV ONE (17:30)
[2024-02-19] MEDS: triamcinolone acetonide 0.5% cream 15gm TP SCH (23:52)
[2024-02-20] VITALS (26 sets, daily range): BP systolic 95–130; BP diastolic 54–87; PULSE 92–105; RESP 15–25; TEMP 96.8–98; O2SAT 91–97
[2024-02-20] MEDS: morphine 2 MG/ML inj. syringe IV PRN (00:01)
[2024-02-20 08:09] LABS: BASOPHILS % (AUTO) 0.1 % (0-1); EOSINOPHILS % (AUTO) 0.4 % (0-6); HEMATOCRIT 38.7 % (42.0-52.0); HEMOGLOBIN 12.6 g/dl (14.0-17.9); LYMPHOCYTES # (AUTO) 1.4 X10'3 (1.1-4.8); LYMPHOCYTES % (AUTO) 10.6 % (21-51); MEAN CORPUSCULAR HEMOGLOBIN 27.3 PG (27.0-31.0); MEAN CORPUSCULAR HGB CONC 32.6 g/dL (33.0-36.5); MEAN CORPUSCULAR VOLUME 83.8 FL (78-98); MEAN PLATELET VOLUME 8.4 FL (7.4-10.4); MONOCYTES # (AUTO) 1.5 X10'3 (0-0.9); MONOCYTES % (AUTO) 11.6 % (2-12); NEUTROPHILS # (AUTO) 9.9 X10'3 (1.8-7.7); NEUTROPHILS % (AUTO) 77.3 % (42-75); PLATELET COUNT 186 X10'3 (140-440); RED BLOOD COUNT 4.62 X10'6 (4.70-6.10); RED CELL DISTRIBUTION WIDTH 15.5 % (11.5-14.5); WHITE BLOOD COUNT 12.9 X10'3 (4.5-11.0)
[2024-02-20 08:44] LABS: ALANINE AMINOTRANSFERASE 379 U/L (12-78); ALBUMIN 1.9 G/DL (3.4-5.0); ALBUMIN/GLOBULIN RATIO 0.4 (1.1-1.5); ALKALINE PHOSPHATASE 98 IU/L (46-116); ANION GAP 13 (8-16); ASPARTATE AMINO TRANSFERASE 520 U/L (10-37); BILIRUBIN,TOTAL 1.2 MG/DL (0.1-1.0); BLOOD UREA NITROGEN 31 MG/DL (7-18); BUN/CREATININE RATIO 26.7 (10.0-20.0); CALCIUM 8.4 MG/DL (8.5-10.1); CHLORIDE 101 MMOL/L (99-107); CREATININE 1.16 MG/DL (0.60-1.10); GLUCOSE 207 MG/DL (70-104); POTASSIUM 3.1 MMOL/L (3.5-5.1); SODIUM 135 MMOL/L (135-145); TOTAL CARBON DIOXIDE 21.1 MMOL/L (24-32); TOTAL PROTEIN 6.2 G/DL (6.4-8.2); eCRCL 57 ML/MIN; eGFR 64 ML/MIN
[2024-02-20] MEDS ORDERED: proCHLORperazine 10 MG/2 ml inj IV PRN ×2 (11:05→14:25)
[2024-02-20] MEDS ORDERED: ondansetron/PF 4mg/2ml inj IV PRN ×2 (11:05→14:25)
[2024-02-20] MEDS ORDERED: morphine 2 MG/ML inj. syringe IV PRN ×2 (11:05→14:25)
[2024-02-20] MEDS ORDERED: morphine 4 MG/ML inj SYRINge IV PRN ×2 (11:05→14:25)
[2024-02-20] MEDS ORDERED: labetalol 20mg/4ml (5mg/ml) syringe IV PRN ×2 (11:05→14:25)
[2024-02-20] MEDS ORDERED: meperidine/PF 25mg/ml syringe IV PRN ×6 (11:05→14:25)
[2024-02-20] MEDS: ringers solution, lacted 1,000 ML IV SCH ×2 (11:05→14:25)
[2024-02-20] MEDS ORDERED: enalaprilat dihydrate 2.5mg/2ml vial IV PRN ×2 (11:05→14:25)
[2024-02-20] MEDS ORDERED: bacitracin 15gm ointment TP ONE (12:34)
[2024-02-20] MEDS ORDERED: sevoflurane 250ml liquid IH ONE (13:02)
[2024-02-20] MEDS ORDERED: midazolam 1 mg/ML 2ml injection ONE (13:07)
[2024-02-20] MEDS ORDERED: fentaNYL /PF 50mcg/ml 5ml ampule ONE (13:07)
[2024-02-20] MEDS ORDERED: LIDOcaine 2% (20mg/ml) 5ml vial ONE (13:31)
[2024-02-20] MEDS ORDERED: propofol inj 20 ML IV ONE (13:31)
[2024-02-20] MEDS ORDERED: ePHEDrine 50MG/ML INJ. ONE (14:29)
[2024-02-20] MEDS ORDERED: magnesium Cl slow-release 64mg tablet PO PRN (17:30)
[2024-02-20] MEDS ORDERED: magnesium sulf-water 4G/100mL 100 ML IV PRN (17:30)
[2024-02-20] MEDS ORDERED: magnesium sulf-water 2g/50mL 50 ML IV PRN (17:30)
[2024-02-20] MEDS: K and/or MAG REPLACEMENT MC SCH (20:00)
[2024-02-20] MEDS: INSULIN LISPRO 100 UNIT/ML INSULN.PEN MULTI-DOSE SQ SCH (20:27)
[2024-02-20] MEDS: potassium Cl 20 mEq SR tablet PO PRN (21:00)
[2024-02-20] MEDS: VANCOMYCIN LEVEL IV ONE (21:30)
[2024-02-21] VITALS (15 sets, daily range): BP systolic 101–129; BP diastolic 58–78; PULSE 80–100; RESP 16–26; TEMP 97.4–98.4; O2SAT 91–96
[2024-02-21 07:57] LABS: BASOPHILS # (AUTO) 0.1 X10'3 (0-0.2); BASOPHILS % (AUTO) 0.5 % (0-1); EOSINOPHILS % (AUTO) 0 % (0-6); HEMATOCRIT 39.1 % (42.0-52.0); HEMOGLOBIN 12.7 g/dl (14.0-17.9); LYMPHOCYTES # (AUTO) 1.4 X10'3 (1.1-4.8); LYMPHOCYTES % (AUTO) 9.4 % (21-51); MEAN CORPUSCULAR HEMOGLOBIN 27.4 PG (27.0-31.0); MEAN CORPUSCULAR HGB CONC 32.5 g/dL (33.0-36.5); MEAN CORPUSCULAR VOLUME 84.3 FL (78-98); MEAN PLATELET VOLUME 8.9 FL (7.4-10.4); MONOCYTES # (AUTO) 0.9 X10'3 (0-0.9); MONOCYTES % (AUTO) 6.4 % (2-12); NEUTROPHILS # (AUTO) 12.4 X10'3 (1.8-7.7); NEUTROPHILS % (AUTO) 83.7 % (42-75); PLATELET COUNT 208 X10'3 (140-440); RED BLOOD COUNT 4.64 X10'6 (4.70-6.10); RED CELL DISTRIBUTION WIDTH 15.8 % (11.5-14.5); WHITE BLOOD COUNT 14.8 X10'3 (4.5-11.0)
[2024-02-21] MEDS: insulin glargine (Lantus) pen - multi-dose SQ SCH (08:00)
[2024-02-21 08:38] LABS: ALANINE AMINOTRANSFERASE 343 U/L (12-78); ALBUMIN 1.8 G/DL (3.4-5.0); ALBUMIN/GLOBULIN RATIO 0.4 (1.1-1.5); ALKALINE PHOSPHATASE 101 IU/L (46-116); ANION GAP 16 (8-16); ASPARTATE AMINO TRANSFERASE 295 U/L (10-37); BILIRUBIN,TOTAL 1.1 MG/DL (0.1-1.0); BLOOD UREA NITROGEN 31 MG/DL (7-18); BUN/CREATININE RATIO 26.1 (10.0-20.0); CALCIUM 8.6 MG/DL (8.5-10.1); CHLORIDE 103 MMOL/L (99-107); CREATININE 1.19 MG/DL (0.60-1.10); GLUCOSE 295 MG/DL (70-104); POTASSIUM 3.9 MMOL/L (3.5-5.1); SODIUM 136 MMOL/L (135-145); TOTAL PROTEIN 6.2 G/DL (6.4-8.2); eCRCL 55 ML/MIN; eGFR 62 ML/MIN
[2024-02-21] MEDS: LAMOTRIGINE 25 MG PO SCH (08:49)
[2024-02-21] MEDS: nitroGLYCERIN 0.4mg SUBLingual tab SL PRN (14:35)
[2024-02-21] MEDS: aspirin 325mg tablet PO ONE (14:35)
[2024-02-21 16:04] LABS: INR 1.1 INR; PROTHROMBIN TIME 11.9 SECONDS (9.0-12.0)
[2024-02-21] MEDS: heparin 10,000 units/1 ML INJ IV ONE (16:30)
[2024-02-21] MEDS: heparin 25,000 UNIT/250ml bag 250 ML IV PRN (16:33)
[2024-02-21] MEDS: metoprolol tartrate 25mg tablet PO ONE (16:36)
[2024-02-21] MEDS: atorvastatin 20mg tablet PO ONE (16:37)
[2024-02-21] MEDS: traZODone 50mg tablet PO SCH (20:04)
[2024-02-21] MEDS: metoprolol tartrate 12.5mg (1/2 tablet) PO SCH (20:05)
[2024-02-21] MEDS: mag hydrox/Alum hydrox/simeth 30ml oral suspension PO ONE (20:31)
[2024-02-21] MEDS: MESSAGE TO NURSING IV ONE (21:01)
[2024-02-22] VITALS (7 sets, daily range): BP systolic 126–141; BP diastolic 69–84; PULSE 77–98; RESP 16–36; TEMP 97.9–98.8; O2SAT 92–99
[2024-02-22] MEDS: MESSAGE TO NURSING IV ONE ×3 (00:24→17:31)
[2024-02-22] MEDS: furosemide 40mg/4ml inj IV ONE (06:16)
[2024-02-22] MEDS ORDERED: atorvastatin 20mg tablet PO SCH (08:00)
[2024-02-22 08:22] LABS: BASOPHILS # (AUTO) 0.2 X10'3 (0-0.2); EOSINOPHILS % (AUTO) 0 % (0-6); HEMATOCRIT 40.5 % (42.0-52.0); LYMPHOCYTES # (AUTO) 2.4 X10'3 (1.1-4.8); LYMPHOCYTES % (AUTO) 11.8 % (21-51); MEAN CORPUSCULAR HEMOGLOBIN 26.8 PG (27.0-31.0); MEAN CORPUSCULAR HGB CONC 32.2 g/dL (33.0-36.5); MEAN CORPUSCULAR VOLUME 83.2 FL (78-98); MEAN PLATELET VOLUME 8.9 FL (7.4-10.4); MONOCYTES # (AUTO) 1.6 X10'3 (0-0.9); MONOCYTES % (AUTO) 7.7 % (2-12); NEUTROPHILS # (AUTO) 16.1 X10'3 (1.8-7.7); NEUTROPHILS % (AUTO) 79.5 % (42-75); PLATELET COUNT 302 X10'3 (140-440); RED BLOOD COUNT 4.87 X10'6 (4.70-6.10); WHITE BLOOD COUNT 20.3 X10'3 (4.5-11.0)
[2024-02-22] MEDS: aspirin 325mg tablet PO SCH (08:28)
[2024-02-22 08:29] LABS: ALANINE AMINOTRANSFERASE 254 U/L (12-78); ALBUMIN/GLOBULIN RATIO 0.4 (1.1-1.5); ALKALINE PHOSPHATASE 132 IU/L (46-116); ANION GAP 13 (8-16); ASPARTATE AMINO TRANSFERASE 133 U/L (10-37); BILIRUBIN,TOTAL 1.1 MG/DL (0.1-1.0); BLOOD UREA NITROGEN 27 MG/DL (7-18); BUN/CREATININE RATIO 25.5 (10.0-20.0); CALCIUM 8.5 MG/DL (8.5-10.1); CHLORIDE 100 MMOL/L (99-107); CREATININE 1.06 MG/DL (0.60-1.10); GLUCOSE 255 MG/DL (70-104); POTASSIUM 3.4 MMOL/L (3.5-5.1); SODIUM 134 MMOL/L (135-145); TOTAL CARBON DIOXIDE 21.4 MMOL/L (24-32); TOTAL PROTEIN 6.6 G/DL (6.4-8.2); eCRCL 62 ML/MIN; eGFR 71 ML/MIN
[2024-02-22] MEDS: heparin 10,000 units/1 ML INJ IV PRN (10:00)
[2024-02-22] MEDS: furosemide 40mg/4ml inj IV SCH ×2 (11:57→21:42)
[2024-02-22] MEDS: potassium Cl 40MEQ/1/2NS 520ml 520 ML IV PRN (16:55)
[2024-02-22] MEDS: JUVEN Shake w/Arg/Glut/Ca2+Bmb (Juven 19.3gm) pkt 240ml PO SCH (17:00)
[2024-02-22] MEDS: HYDROcodone/acetaminophen 5mg/325mg tablet PO PRN (21:41)
[2024-02-23] VITALS (7 sets, daily range): BP systolic 102–120; BP diastolic 65–75; PULSE 85–92; RESP 20–28; TEMP 96.6–98.3; O2SAT 92–99
[2024-02-23] MEDS: MESSAGE TO NURSING IV ONE ×3 (00:46→15:06)
[2024-02-23 06:38] LABS: BASOPHILS % (AUTO) 0.3 % (0-1); EOSINOPHILS % (AUTO) 0.1 % (0-6); HEMATOCRIT 39.3 % (42.0-52.0); HEMOGLOBIN 13.1 g/dl (14.0-17.9); LYMPHOCYTES # (AUTO) 2.1 X10'3 (1.1-4.8); LYMPHOCYTES % (AUTO) 13.2 % (21-51); MEAN CORPUSCULAR HEMOGLOBIN 27.4 PG (27.0-31.0); MEAN CORPUSCULAR HGB CONC 33.2 g/dL (33.0-36.5); MEAN CORPUSCULAR VOLUME 82.6 FL (78-98); MEAN PLATELET VOLUME 8.2 FL (7.4-10.4); MONOCYTES # (AUTO) 1.8 X10'3 (0-0.9); MONOCYTES % (AUTO) 11.5 % (2-12); NEUTROPHILS # (AUTO) 12.1 X10'3 (1.8-7.7); NEUTROPHILS % (AUTO) 74.9 % (42-75); PLATELET COUNT 290 X10'3 (140-440); RED BLOOD COUNT 4.76 X10'6 (4.70-6.10); RED CELL DISTRIBUTION WIDTH 15.8 % (11.5-14.5); WHITE BLOOD COUNT 16.1 X10'3 (4.5-11.0)
[2024-02-23 06:57] LABS: ALANINE AMINOTRANSFERASE 170 U/L (12-78); ALBUMIN 1.8 G/DL (3.4-5.0); ALBUMIN/GLOBULIN RATIO 0.4 (1.1-1.5); ALKALINE PHOSPHATASE 109 IU/L (46-116); ANION GAP 6 (8-16); ASPARTATE AMINO TRANSFERASE 74 U/L (10-37); BLOOD UREA NITROGEN 25 MG/DL (7-18); CALCIUM 8.5 MG/DL (8.5-10.1); CHLORIDE 103 MMOL/L (99-107); GLUCOSE 214 MG/DL (70-104); PRO BRAIN NATRIURETIC PEPTIDE 13841 PG/ML (0-125); SODIUM 139 MMOL/L (135-145); TOTAL CARBON DIOXIDE 29.8 MMOL/L (24-32); TOTAL PROTEIN 6.2 G/DL (6.4-8.2); eCRCL 66 ML/MIN; eGFR 75 ML/MIN
[2024-02-23] MEDS: JUVEN Smoothie Arginine/Glut./Ca2+Bmb (Juven 19.3pkt) 240ml cup PO SCH (07:30)
[2024-02-23] MEDS: potassium Cl 20 mEq SR tablet PO PRN (08:55)
[2024-02-23 11:08] LABS: CHOL/HDL RATIO 2.3 (0.00-4.99); CHOLESTEROL 75 MG/DL (0-200); HDL CHOLESTEROL 32 MG/DL (35-60); LDL CHOLESTEROL 35 MG/DL (50-100); TRIGLYCERIDES 75 MG/DL (20-135)
[2024-02-23] MEDS: penicillin G potassium inj 3,000,000 UNIT in normal saline 100ml IV soln 100 ML IV SCH (12:21)
[2024-02-23] MEDS: clopidogrel 75mg tablet PO SCH (15:39)
[2024-02-23] MEDS: insulin glargine (Lantus) pen - multi-dose SQ SCH (22:03)
[2024-02-23] MEDS: atorvastatin 20mg tablet PO SCH (22:07)
[2024-02-24 02:00] VITALS: BP 101/56; PULSE 91; RESP 17; TEMP 97.3; O2SAT 95
[2024-02-24 06:00] VITALS: BP 135/78; PULSE 93; RESP 24; TEMP 97.4; O2SAT 100
[2024-02-24 06:55] LABS: BASOPHILS % (AUTO) 0.2 % (0-1); EOSINOPHILS % (AUTO) 0.2 % (0-6); HEMATOCRIT 39.1 % (42.0-52.0); HEMOGLOBIN 12.8 g/dl (14.0-17.9); LYMPHOCYTES % (AUTO) 13.8 % (21-51); MEAN CORPUSCULAR HEMOGLOBIN 27.3 PG (27.0-31.0); MEAN CORPUSCULAR HGB CONC 32.8 g/dL (33.0-36.5); MEAN CORPUSCULAR VOLUME 83.4 FL (78-98); MEAN PLATELET VOLUME 8.2 FL (7.4-10.4); MONOCYTES # (AUTO) 1.3 X10'3 (0-0.9); MONOCYTES % (AUTO) 8.6 % (2-12); NEUTROPHILS # (AUTO) 11.4 X10'3 (1.8-7.7); NEUTROPHILS % (AUTO) 77.2 % (42-75); PLATELET COUNT 309 X10'3 (140-440); RED BLOOD COUNT 4.68 X10'6 (4.70-6.10); WHITE BLOOD COUNT 14.8 X10'3 (4.5-11.0)
[2024-02-24 07:27] LABS: ALANINE AMINOTRANSFERASE 124 U/L (12-78); ALBUMIN 1.8 G/DL (3.4-5.0); ALBUMIN/GLOBULIN RATIO 0.4 (1.1-1.5); ALKALINE PHOSPHATASE 107 IU/L (46-116); ANION GAP 8 (8-16); ASPARTATE AMINO TRANSFERASE 52 U/L (10-37); BILIRUBIN,TOTAL 1.1 MG/DL (0.1-1.0); BLOOD UREA NITROGEN 26 MG/DL (7-18); BUN/CREATININE RATIO 27.7 (10.0-20.0); CALCIUM 8.4 MG/DL (8.5-10.1); CHLORIDE 103 MMOL/L (99-107); CREATININE 0.94 MG/DL (0.60-1.10); GLUCOSE 191 MG/DL (70-104); POTASSIUM 3.3 MMOL/L (3.5-5.1); SODIUM 140 MMOL/L (135-145); TOTAL PROTEIN 6.3 G/DL (6.4-8.2); eCRCL 70 ML/MIN; eGFR 81 ML/MIN
[2024-02-24] MEDS: metoprolol succinate 25mg (24-HOUR) SR. Tablet PO SCH (07:58)
[2024-02-24] MEDS: aspirin 81mg tab.chew PO SCH (07:58)
[2024-02-24] MEDS: lisinopril 20mg tablet PO SCH (07:58)
[2024-02-24 10:00] VITALS: BP 100/60; PULSE 90; RESP 22; TEMP 97.6; O2SAT 96
[2024-02-24] MEDS ORDERED: iohexol 350MG/ML 100ml bottle IV ONE (11:17)
== END 2024-02-24 16:50 | DRG 853 ==
LOC: ER 05:30 → ED HOLD 13:26 → PACU 14:48 → PCU 3S 21:43
PROVIDERS: ADMIT Internal Medicine; ATTEND Internal Medicine
PROC: 0Y6H0Z3 Detachment at Right Lower Leg, Low, Open Approach (ICD-10-PCS; 2024-02-17)
PROC: 0S9D30Z Drainage of Left Knee Joint with Drainage Device, Percutaneous Approach (ICD-10-PCS; 2024-02-17)
PROC: 0S9D3ZZ Drainage of Left Knee Joint, Percutaneous Approach (ICD-10-PCS; 2024-02-17 17:56)
PROC: 0Y6J0Z3 Detachment at Left Lower Leg, Low, Open Approach (ICD-10-PCS; principal; 2024-02-20 13:02)
PROC: B32T1ZZ Computerized Tomography (CT Scan) of Left Pulmonary Artery using Low Osmolar Contrast (ICD-10-PCS; 2024-02-24)
PROC: B3201ZZ Computerized Tomography (CT Scan) of Thoracic Aorta using Low Osmolar Contrast (ICD-10-PCS; 2024-02-24)
PROC: B32S1ZZ Computerized Tomography (CT Scan) of Right Pulmonary Artery using Low Osmolar Contrast (ICD-10-PCS; 2024-02-24)
PROC: 05HC33Z Insertion of Infusion Device into Left Basilic Vein, Percutaneous Approach (ICD-10-PCS; 2024-02-24)
DX: A40.1 Sepsis due to streptococcus, group B (principal); I21.4 Non-ST elevation (NSTEMI) myocardial infarction; I50.43 Acute on chronic combined systolic (congestive) and diastolic (congestive) heart failure; L02.611 Cutaneous abscess of right foot; L03.115 Cellulitis of right lower limb; M86.8X6 Other osteomyelitis, lower leg; M00.862 Arthritis due to other bacteria, left knee; I13.0 Hypertensive heart and chronic kidney disease with heart failure and stage 1 through stage 4 chronic kidney disease, or unspecified chronic kidney disease; B20 Human immunodeficiency virus [HIV] disease; E11.22 Type 2 diabetes mellitus with diabetic chronic kidney disease; E11.42 Type 2 diabetes mellitus with diabetic polyneuropathy; E11.51 Type 2 diabetes mellitus with diabetic peripheral angiopathy without gangrene; E78.5 Hyperlipidemia, unspecified; F41.9 Anxiety disorder, unspecified; E11.69 Type 2 diabetes mellitus with other specified complication; E87.6 Hypokalemia; E11.65 Type 2 diabetes mellitus with hyperglycemia; I20.9 Angina pectoris, unspecified; K21.9 Gastro-esophageal reflux disease without esophagitis; G47.33 Obstructive sleep apnea (adult) (pediatric); F32.A Depression, unspecified; E11.621 Type 2 diabetes mellitus with foot ulcer; L97.519 Non-pressure chronic ulcer of other part of right foot with unspecified severity; N18.9 Chronic kidney disease, unspecified; Z87.891 Personal history of nicotine dependence; Z88.1 Allergy status to other antibiotic agents; Z79.82 Long term (current) use of aspirin; Z79.899 Other long term (current) drug therapy
CPT/HCPCS: 36410; 36415; 71045; 71275; 73564; 73630; 76942; 80053; 80061; 80202; 82948; 83036; 83605; 83880; 83930; 84145; 84484; 85025; 85610; 85651; 85730; 86140; 87015; 87040; 87070; 87075; 87077; 87081; 87186; 88307; 89051; 89060; 93005; 93306; 96365; 96375; 97110; 97161; 97530; 99291; A4215; A4314; A4615; A4618; A6196; A6213; A6253; A6258; A6446; A6449; A6550; A6590; A7000; C1751; G0378; J1100; J1171; J1644; J1815; J1940; J1956; J2003; J2250; J2270; J2405; J2540; J2704; J2795; J3010; J3370; J3372; J3480; J3490; J7030; J7040; J7070; J7120; P9045; Q9967